=== PATIENT | female | born 1945 | race Caucasian/White ===

== ENCOUNTER 2016-09-12 19:13 | Inpatient (IN) | payer MEDICARE, OTHER ==
[~2016-09-12] VITALS: Ht 157.5 cm; Wt 49.4 kg
--- NOTE | ~2016-09-12 | PR ---
[place], [place] PROGRESS NOTE NAME: JO ANN FONG [facility] #: [id number] UNIT #: [id number] ROOM: 411 DOCTOR: JEANCARLOS LEO MD,AMISH BIRTHDATE: [birth year] DOS: 09/15/2016 SUBJECTIVE: The patient was seen and examined on 09/15/2016. She was still noted with generalized weakness and fatigue with shortness of breath. Shortness of breath has been noted somewhat decreased. Coughing has been subsiding gradually. Denies any symptoms of chest pain or any abdominal pain. She has been continued corticosteroids, bronchodilators, and the antibiotics. OBJECTIVE: VITAL SIGNS: For the patient which has been recorded showed normal temperature, respiratory rate 18, heart rate 85, blood pressure 154/76. Pulse oxygen saturation of the patient recorded on 3 liters nasal canula 92% saturation. HEENT: Examination shows no acute change. NECK: Supple. CARDIOVASCULAR: S1, S2 audible. LUNGS: The patient was noted without any wheezing or crackles at this time. Breaths are noted generalized diminished bilaterally with decreased air exchange. ABDOMEN: Soft, nontender, bowel sounds present. LABORATORY DATA: BMP this morning was noted normal BUN and creatinine, CO2 was 38. CBC this morning was essentially noted as normal. IMPRESSION: 1. The patient with gradual reduction and resolution of the acute on chronic hypercapnic hypoxic respiratory failure with acute exacerbation of chronic obstructive pulmonary disease, severe muscular deconditioning was still noted. 2. Metabolic alkalosis of the patient was also noted related to the chronic hypercarbia. PLAN OF TREATMENT: Physical therapy and occupation therapy. Reduce the Solu-Medrol of the patient to b.i.d. dosing. The patient has been presented the option of assessment for the long-term acute care facility and long-term, but the patient does not want me to accept any of the recommendation and only wanted to be discharged home with home health services. Because of severe muscular deconditioning the patient has been told she is going to take significant amount of time to have a purposefully improvement in a physical status. The patient does understand that. In the meantime, we will continue the current plan of management at this time. Usual care, other supportive therapy, plan of care and treatments. Further treatment changes will be done based on the progression of the illness. [place], [place] PROGRESS NOTE NAME: JO ANN FONG UNIT #: [id number] ROOM: 411 DOCTOR: JEANCARLOS LEO MD,AMISH BIRTHDATE: [birth year] AMISH ARSHAD MD CM:PNTRANS [id number] AMISH LEO MD 09/15/16 2326 interface
--- NOTE | ~2016-09-12 | PR ---
[place], [place] PROGRESS NOTE NAME: JO ANN FONG UNIT #: [id number] ROOM: 411 DOCTOR: AMISH ALMARAZ MD BIRTHDATE: [birth year] DOS: 09/16/2016 SUBJECTIVE: The patient has been noted comfortable. At this time, she was noted with generalized weakness and fatigue. Using oxygen supplementation and nasal canula. Coughing, shortness of breath, other symptoms was slowly resolving. OBJECTIVE: VITAL SIGNS: Shows normal temperature, respirations 18, heart rate 85, and blood pressure 154/60. Pulse oxygen saturation on 3 liters nasal cannula 94% saturation. HEENT: Shows no acute change. NECK: Supple. CARDIOVASCULAR SYSTEM: S1, S2 audible. LUNGS: The patient noted moderate reduction in the breath sounds were noted in the lungs bilaterally with a questionable wheezing. There were no crackles. ABDOMEN: Soft, nontender. LABORATORY DATA: CBC: WBC count 11.1. Remaining CBC was normal. BMP this morning noted normal BUN and creatinine. Carbon dioxide of 39. IMPRESSION: 1. Stable respiratory status was noted at the present time with resolving acute exacerbation of chronic obstructive pulmonary disease with acute tracheobronchitis. 2. Acute on chronic hypercapnia hypoxic respiratory failure also gradually resolving. 3. Muscle deconditioning and debility. PLAN OF TREATMENT: The patient could be discharged home on oral prednisone tapering dose, use of antibiotic, use of oxygen supplementation. Home health, physical therapy and occupation therapy. Outpatient assessment of the patient for the COPD and the pulmonary nodule needs to be done. She was asked to make an appointment in the office in couple of weeks post-discharge for further assessment of respiratory status. Abstinence of tobacco use was encouraged. [place], [place] PROGRESS NOTE NAME: JO ANN FONG UNIT #: [id number] ROOM: 411 DOCTOR: AMISH ALMARAZ MD BIRTHDATE: [birth year] AMISH ARSHAD MD CM:PNTRANS [id number] AMISH LEO MD 09/16/16 1409 interface
--- NOTE | ~2016-09-12 | CON ---
[place], [place] REPORT OF CON[facility]ULTATION [id number] UN[facility] #: [id number] ROOM: 411 DOCTOR: AMISH ALMARAZ MD BIRTHDATE: [birth year] DOS: 09/13/2016 CONSULTATION REQUESTED BY: Hospitalist Services. REASON FOR CONSULTATION: For assessment of acute respiratory complaints. HISTORY OF PRESENT ILLNESS: A 70-year-old white female who has been admitted to the hospital under the care of the Hospitalist Services on 09/12/2016. The patient reported symptoms of shortness of breath for the patient that have been associated with significant dizziness for the past 3 days. Shortness of breath has been noted significantly worsening. The patient denies symptoms of chest pain. The patient denies symptoms of hemoptysis. The coughing has been noted moderate to severely without any sputum expectoration. Wheezing for the patient was also noted for this patient in the last few days. REVIEW OF SYSTEMS: CONSTITUTIONAL: Fatigue and tiredness noted without any abnormal weight loss history. Denies any changes in appetite. EYES: Denies any burning, redness, tenderness, discharge, or dryness. EARS, NOSE, AND THROAT: No sore throat, hoarseness, otalgia, or epistaxis. CARDIOVASCULAR: Denies any anginal pain, edema, pain in lower extremities, or palpitations. GASTROINTESTINAL: Denies dysphagia, nausea, vomiting, diarrhea, abdominal pain, hematemesis, melena, hematochezia. GENITOURINARY: Denies dysuria, suprapubic pain, hematuria. SKIN: Denies lesions or rashes. MUSCULOSKELETAL: Denies any acute joint pain, redness, or tenderness. CENTRAL NERVOUS SYSTEM: Symptoms of dizziness without any seizures. Denies symptoms of diplopia or headaches. The patient's remaining systems were reviewed with the patient, they were noted all negative. PAST MEDICAL HISTORY: Noted with previous hospitalization in this hospital and treated in 2016 for this patient in October for the acute on chronic hypoxic respiratory failure, acute exacerbation of COPD, acute tracheobronchitis. PAST MEDICAL HISTORY: 1. Severe centrilobular emphysema with FEV1 about 23% 2. Chronic hypoxic respiratory failure, use of oxygen supplementation. 3. Generalized anxiety disorder. 4. History of major depression. 5. Chronic nicotine dependence. PAST SURGICAL HISTORY: 1. Fiberoptic bronchoscopy for the patient in the past. 2. T and A. 3. Appendectomy. 4. Tubal ligation. [place], [place] REPORT OF CONSULTATION NAME: JO ANN FONG UNIT #: [id number] ROOM: 411 DOCTOR: JEANCARLOS LEO MD,AMISH BIRTHDATE: [birth year] SOCIAL HISTORY: The patient is , lives at home. Denies history of alcohol use or illicit drug use. Tobacco use noted since teenager, 2 packs of cigarettes per day, and stated that she had been smoking 1-2 cigarettes a day for this patient. She also noted history of marijuana use, which is chronic. Denies history of alcohol use or any illicit drug use. Denies history of occupation related pulmonary exposure history. FAMILY HISTORY: For the patient was noted remarkable for colon cancer, coronary artery disease, and brain cancer. HOME MEDICATIONS: Known as use of: 1. ProAir HFA inhaler p.r.n. use. 2. Symbicort 160/4.5 two puffs b.i.d. 3. Aspirin 81 mg p.o. daily. 4. Effexor XR 150 mg daily. 5. Fish oil 2000 mg p.o. daily. 6. Tranxene for the patient 7.5 mg b.i.d. 7. Valproic acid for the patient 125 mg p.o. t.i.d. 8. ____. 9. Use of oxygen supplementation. DRUG ALLERGIES: The drug allergy history for the patient was noted as: 1. IVP DYE. 2. CODEINE PHOSPHATE. 3. KEFLEX. PHYSICAL EXAMINATION: GENERAL: This is a 70-year-old female who has been noted currently awake and alert without any distress. Height of 5 feet 2 inches, weight of 109 pounds, BMI 19.9. VITAL SIGNS: For the patient which has been recorded shows temperature was noted as normal, respiratory rate 18-20, heart rate of 91-104, blood pressure 120/50-123/59. Intake for the patient recorded as intake 2700 mL, output was documented only 200 mL in the last 12 hours of admission. Pulse oxygen saturation on 4 L nasal cannula 95% saturation. HEENT: Examination of the head was atraumatic. Eyes nonicterus. NECK: Supple. CARDIOVASCULAR: S1, S2 audible. LUNGS: General reduction in breath sounds noted in the lungs bilaterally with diffuse expiratory wheezing. There were no crackles. ABDOMEN: Soft, nontender. Bowel sounds are present. EXTREMITIES: Showed no edema, clubbing, or cyanosis. CENTRAL NERVOUS SYSTEM: There were no gross focal neurologic deficits. Cranial nerves 2-12 intact. MUSCULOSKELETAL: No acute deformities. SKIN: No lesions or rashes. LABORATORY DATA: CBC of the patient on 09/12/2016 shows normal CBC for the patient. The lactic acid 1.1 on on admission for this patient in August. CMP of the patient and hepatic panel for the patient, BMP was noted as normal on [place], [place] REPORT OF CONSULTATION NAME: JO ANN FONG UNIT #: [id number] ROOM: [facility] DOCTOR: FATOU ALMARAZ MDM BIRTHDATE: [birth year] 09/12/2016. CK-MB additionally to assess the patient was noted normal this morning. The BMP this morning, glucose 212, BUN 8, creatinine was normal. Phosphorus 1.8. Calcium was normal. CBC this morning, WBC count 4.5, hemoglobin 11.8, hematocrit 35.8, platelet count of 161,000. Chest x-ray of the patient that was done for this patient, 1 view, on 09/12/2016 shows severe emphysematous changes for the patient were noted in the lungs. Possible pulmonary nodule was suspected in the right middle lobe. CT scan of the chest that was done on 09/13/2016 for the patient compared to the previous CT scan of 10/2015 shows marked improvement and resolution of the bilateral patchy infiltration tree-in-bud appearance and infiltration in the lungs. Nodule for this patient and/or scarring for the patient, which is present in the right middle lobe minor fissure for the patient appeared to be about the same for this patient, may be a little bit prominence cannot be completely excluded. Other nodular density for this patient, which has been noted previously appears the same or resolved. There was a left lingula for the patient noted with patchy infiltration for this patient and in the left upper lobe for the patient as well. A large bullous lesion for this patient was noted in the right lower lobe. There was no lymphadenopathy with the patient was noted. IMPRESSION: 1. The patient who has been currently admitted to the hospital and being treated for this patient with acute recurrent exacerbation of chronic obstructive pulmonary disease, acute tracheobronchitis, history of chronic hypoxic respiratory failure. 2. Rule out hypercarbia for this patient with arterial blood gases as the patient stated that she has been noted some confusional status as well in the last few days. 3. The patient with steroid-induced hyperglycemia was noted, which will be managed for the patient with the sliding scale insulin coverage for this patient as well. PLAN: Other supportive therapy, plan of management at this time to be continued. The abnormality to the right middle lobe for the patient will be assessed with a PET scan as an outpatient. Sputum for Gram stain and culture for the patient will be done as well. Use of the Mucinex for the patient to help clear out the secretions. Supportive therapy plan of management. Other care. Further treatment changes will be done based on the progression of the illness. The patient's continued low grade tobacco use for the patient was encouraged about complete tobacco cessation in the future. Oxygen supplementation to be continued, maintaining saturation 92% or greater. If the hypercarbia observed significant for the patient, the patient will benefit from use of the trial with the BiPAP at that time. Otherwise, no changes in the antibiotics for the patient will be necessary. She has been also getting Solu-Medrol which will be continued same dose, 40 mg every 8 hours and current use of the antibiotic as Levaquin. Thanks for allowing me to participate in the care of this patient. [place], [place] REPORT OF CONSULTATION NAME: JO ANN FONG UNIT #: [id number] ROOM: 411 DOCTOR: AMISH ALMARAZ MD BIRTHDATE: [birth year] AMISH ARSHAD MD CM:CONSTR:REPORT OF CONSULTATION 1129 09/13/16 1212 interface
--- NOTE | ~2016-09-12 | PR ---
[place], [place] PROGRESS NOTE NAME: JO ANN FONG UNIT #: [id number] ROOM: 411 DOCTOR: AMISH ALMARAZ MD BIRTHDATE: [birth year] DOS: 09/14/2016 PULMONARY FOLLOWUP SUBJECTIVE: She has still been noted with symptoms of coughing with chest congestion and shortness of breath. Also, complaining of generalized weakness and fatigue. Dizziness was described. Shortness of breath occurred with mild exertion. OBJECTIVE: VITAL SIGNS: Shows a normal temperature, respiratory rate 18, heart rate of 91, blood pressure 171/69. Pulse oxygen saturation of the patient recorded on 3 liters nasal cannula 96% saturation. HEENT: Showed no new change. NECK: Supple. CARDIOVASCULAR SYSTEM: S1, S2 audible. LUNGS: Without any crackles. Expiratory wheezing noted. ABDOMEN: Soft, nontender. LABORATORY DATA: Carbon dioxide level was noted at 35. The BUN and creatinine was normal. CBC of this morning, WBC count 12.5, hemoglobin 11.6, hematocrit 35.2. Arterial blood gas, pH 7.36, pCO2 51, pO2 83 that was done yesterday. IMPRESSION: 1. The patient with acute exacerbation of chronic obstructive pulmonary disease with acute tracheobronchitis of the patient was noted. 2. Possibility of pulmonary nodule, scarring in the lung. 3. Metabolic alkalosis. 4. Dizziness. PLAN OF TREATMENT: The BiPAP was ordered for this patient yesterday that is used by the patient intermittently. Continue current dose of steroids, bronchodilators, antibiotics, other treatment, plan of management. Usual care, other supportive plan of therapies. All other previous treatment, plan and management and usual care. [place], [place] PROGRESS NOTE NAME: JO ANN FONG UNIT #: [id number] ROOM: 411 DOCTOR: AMISH ALMARAZ MD BIRTHDATE: [birth year] AMISH ARSHAD MD CM:PNTRANS [id number] AMISH LEO MD 09/15/16 8691 interface
[~2016-09-12 19:13] MED LIST: ALBUTEROL SULF0.5 M1 NEB; ALBUTEROL0.09 MG/A2 INH; ALPH-E400 IU PO; ASPIRIN325 M2 PO; BACTRIM DS 8001 TA1 PO; CLORAZEPATE7.5 MG PO; D-31000 IU PO; DOXYCYCLINE100 M3 PO; Depakote250 MG PO; ECHINACEA PO; EFFEXOR XR150 M1 PO; FISH OIL PO; HEPARIN LOCK FLU IV; HYDROCODONE BIT1 T11 PO; LEVAQUIN LEVA-750 MG PO; LEVAQUIN250 MG PO; METAMUCIL1.7 GM PO; MIRALAX POWDER17 G1 PO; NIACIN FLUSH-F400 MG PO; OXYGEN NAS; PREDNICOT10 MG PO; PREDNISONE10 MG PO; PROAIR HFA8.5 GM INH; PROTONIX TR40 MG PO; SENOKOT1 TAB PO; SOLU-MEDROL IV; SPIRIVA 5 CAPS18 MCG INH; SYMBICORT1 AE1 INH; TOBREX OPHTH S2.5 ML OPH; TRANXENE PO; Tranxene7.5 MG PO; VENLAFAXINE150 MG PO; VITAMIN D31000 IU PO; VITAMIN D32000 I1 PO; VITAMIN D32000 IU PO; VITAMIN E NATU PO; ZITHROMAX Z PA250 MG PO; [UNRECOGNIZED DRUG - REMARK]; [UNRECOGNIZED DRUG - REMARK] IV
[2016-09-12 19:15] VITALS: BP 150/98
[2016-09-12 20:07] LABS: HEMATOCRIT 40.7 % (37.0-47.0); HEMOGLOBIN 13.7 g/dl (12.0-16.0); LYMPH # 0.7 10*3/uL (1.3-4.4); LYMPH % 15.2 % (27.0-41.0); MEAN CELL VOLUME 89.6 fl (81.0-99.0); MEAN CORPUSCULAR HGB 30.2 pg (27.0-31.0); MEAN CORPUSCULAR HGB CONC 33.7 g/dl (33.0-37.0); MEAN PLATELET VOLUME 10.1 fl (9.6-12.3); MONO # 0.6 10*3/uL (0.1-1.0); MONO % 12.9 % (3.0-9.0); NEUT # 3.5 10*3/uL (2.3-7.9); NEUT % 71.5 % (47.0-73.0); PLATELET COUNT AUTOMATED 193 10*3/uL (130-400); RED BLOOD COUNT 4.54 10*6/uL (4.10-5.10); WHITE BLOOD COUNT 4.9 10*3/uL (4.8-10.8)
[2016-09-12 20:25] LABS: ALBUMIN 4.1 gm/dl (3.1-4.5); ALKALINE PHOSPHATASE 69 U/L (45-117); BILIRUBIN, DIRECT < 0.1 mg/dL (0.0-0.2); BILIRUBIN, TOTAL 0.2 mg/dl (0.2-1.0); SGOT/AST 23 IU/L (3-35); SGPT/ALT 28 U/L (12-78); TOTAL PROTEIN 7.3 gm/dL (6.4-8.2)
[2016-09-12 20:26] LABS: TROPONIN I < 0.015 ng/ml (<0.045)
[2016-09-12 22:23] VITALS: BP 122/64
[2016-09-12 22:50] VITALS: BP 168/73
[2016-09-13] VITALS: BP 123/59
[2016-09-13 00:39] LABS: CKMB 1.5 ng/ml (0.5-3.6); CPK 36 U/L (26-192)
[2016-09-13 00:41] LABS: TROPONIN I < 0.015 ng/ml (<0.045)
[2016-09-13 06:10] LABS: HEMATOCRIT 35.8 % (37.0-47.0); HEMOGLOBIN 11.8 g/dl (12.0-16.0); MEAN CELL VOLUME 91.6 fl (81.0-99.0); MEAN CORPUSCULAR HGB 30.2 pg (27.0-31.0); MEAN PLATELET VOLUME 10.5 fl (9.6-12.3); PLATELET COUNT AUTOMATED 161 10*3/uL (130-400); RED BLOOD COUNT 3.91 10*6/uL (4.10-5.10); RED CELL DISTRI WIDTH 13.1 % (0-14.5); WHITE BLOOD COUNT 4.5 10*3/uL (4.8-10.8)
[2016-09-13 06:25] LABS: HEMOGLOBIN A1c 5.1 % (4.8-5.6)
[2016-09-13 06:25] LABS: CPK 42 U/L (26-192)
[2016-09-13 06:32] LABS: TROPONIN I < 0.015 ng/ml (<0.045)
[2016-09-13 06:38] LABS: BUN 8 mg/dl (7-24); CARBON DIOXIDE 31 mmol/L (21-32); CHLORIDE 100 mmol/L (98-107); CHOLESTEROL 147 mg/dL (<200); EST GLOM FILT AFRICAN AMERICAN > 60 ml/min; FREE T4 0.78 ng/dl (0.76-1.46); GLUCOSE 212 mg/dL (65-99); HDL CHOLESTEROL 79 mg/dl (40-60); LDL CHOLESTEROL 56 mg/dL (9-159); MAGNESIUM 1.7 mg/dL (1.5-2.1); PHOSPHOROUS 1.8 mg/dL (2.5-4.9); POTASSIUM 3.8 mmol/L (3.5-5.1); SODIUM 141 mmol/L (136-145); TRIGLYCERIDES 60 mg/dl (<150); VLDL CHOLESTEROL 12 mg/dL (6-40)
[2016-09-13 06:46] LABS: THYROID STIM HORMONE (HS) 0.269 uIU/ml (0.358-4.75)
[2016-09-13 06:57] LABS: LYMPHOCYTE # 0.3 10*3/uL (1.3-4.4); NEUTROPHIL # 4.2 10*3/uL (2.3-7.9); NEUTROPHILS 93 % (47-73); PLATELET SUFFICIENCY NORMAL (NORMAL); TOTAL CELLS COUNTED 100 #CELLS
[2016-09-13 07:43] LABS: FOLIC ACID 20.13 ng/mL (>5.38)
[2016-09-13 08:00] VITALS: BP 128/50
[2016-09-13] MEDS ORDERED: DIVALPROEX SOD125 MG PO (09:24)
[2016-09-13 11:29] LABS: ABG CO2 CONTENT 30.6 mmol/L (23-27); ABG TEMPERATURE 97.3 F (98.0-99.0); ARTERIAL BLOOD GAS PH 7.363 (7.35-7.45); ARTERIAL BLOOD GAS PO2 83.8 mmHg (80-90)
[2016-09-13 11:49] LABS: BILIRUBIN NEGATIVE (NEGATIVE); BLOOD TRACE-LYSED (NEGATIVE); CLARITY CLEAR (CLEAR); COLOR YELLOW (YELLOW); GLUCOSE 3+ (NEGATIVE); KETONE NEGATIVE (NEGATIVE); LEUKO ESTERASE NEGATIVE (NEGATIVE); NITRITE NEGATIVE (NEGATIVE); PH 5.5 (5.0-9.0); PROTEIN NEGATIVE (NEGATIVE); SPECIFIC GRAVITY 1.015 (1.005-1.030); UROBILINOGEN 0.2 E.U./dl (0.2-1.0)
[2016-09-13 11:59] LABS: URINE REFLEX COMMENT NO (NO)
[2016-09-13 12:00] VITALS: BP 128/61
[2016-09-13 12:14] LABS: CKMB 2.8 ng/ml (0.5-3.6)
[2016-09-13 12:15] LABS: CPK 56 U/L (26-192); TROPONIN I < 0.015 ng/ml (<0.045)
[2016-09-13 16:00] VITALS: BP 130/51
[2016-09-13 20:00] VITALS: BP 128/43
[2016-09-14] VITALS: BP 119/55
[2016-09-14 06:26] LABS: BASO % 0.1 % (0.0-1.0); HEMATOCRIT 35.2 % (37.0-47.0); HEMOGLOBIN 11.6 g/dl (12.0-16.0); IG # 0.1 10*3/uL (0.0-0.1); LYMPH % 7.6 % (27.0-41.0); MEAN CELL VOLUME 91.2 fl (81.0-99.0); MEAN CORPUSCULAR HGB 30.1 pg (27.0-31.0); MEAN PLATELET VOLUME 10.5 fl (9.6-12.3); MONO # 0.9 10*3/uL (0.1-1.0); MONO % 7.4 % (3.0-9.0); NEUT # 10.6 10*3/uL (2.3-7.9); NEUT % 84.5 % (47.0-73.0); PLATELET COUNT AUTOMATED 185 10*3/uL (130-400); RED BLOOD COUNT 3.86 10*6/uL (4.10-5.10); RED CELL DISTRI WIDTH 13.2 % (0-14.5); WHITE BLOOD COUNT 12.5 10*3/uL (4.8-10.8)
[2016-09-14 06:39] LABS: ALBUMIN 3.4 gm/dl (3.1-4.5); ALKALINE PHOSPHATASE 52 U/L (45-117); BILIRUBIN, TOTAL 0.2 mg/dl (0.2-1.0); BUN 8 mg/dl (7-24); CARBON DIOXIDE 35 mmol/L (21-32); CHLORIDE 99 mmol/L (98-107); EST GLOM FILT AFRICAN AMERICAN > 60 ml/min; GLUCOSE 87 mg/dL (65-99); SGOT/AST 16 IU/L (3-35); SGPT/ALT 23 U/L (12-78); SODIUM 142 mmol/L (136-145); TOTAL PROTEIN 6.3 gm/dL (6.4-8.2)
[2016-09-14 08:00] VITALS: BP 171/69
[2016-09-14 12:00] VITALS: BP 145/58
[2016-09-14 16:00] VITALS: BP 105/70
[2016-09-14 20:00] VITALS: BP 143/58
[2016-09-15] VITALS: BP 132/66
[2016-09-15 06:30] LABS: LYMPH # 0.6 10*3/uL (1.3-4.4); LYMPH % 6.1 % (27.0-41.0); MEAN CELL VOLUME 91.8 fl (81.0-99.0); MEAN CORPUSCULAR HGB 29.4 pg (27.0-31.0); MEAN CORPUSCULAR HGB CONC 32.1 g/dl (33.0-37.0); MEAN PLATELET VOLUME 9.8 fl (9.6-12.3); MONO # 0.4 10*3/uL (0.1-1.0); MONO % 3.6 % (3.0-9.0); NEUT % 89.9 % (47.0-73.0); PLATELET COUNT AUTOMATED 206 10*3/uL (130-400); RED BLOOD COUNT 4.62 10*6/uL (4.10-5.10); RED CELL DISTRI WIDTH 13.2 % (0-14.5)
[2016-09-15 06:38] LABS: HEMATOCRIT 42.4 % (37.0-47.0); HEMOGLOBIN 13.6 g/dl (12.0-16.0)
[2016-09-15 07:09] LABS: BUN 11 mg/dl (7-24); CARBON DIOXIDE 38 mmol/L (21-32); CHLORIDE 94 mmol/L (98-107); EST GLOM FILT AFRICAN AMERICAN > 60 ml/min; GLUCOSE 122 mg/dL (65-99); POTASSIUM 4.6 mmol/L (3.5-5.1); SODIUM 141 mmol/L (136-145)
[2016-09-15 08:00] VITALS: BP 154/76
[2016-09-15 16:00] VITALS: BP 128/78; BP 147/78
[2016-09-15 20:00] VITALS: BP 130/63
[2016-09-15] MEDS ORDERED: SPIRIVA -- 3018 MCG INH (21:56)
[2016-09-16] VITALS: BP 138/71
[2016-09-16 07:51] LABS: BASO % 0.1 % (0.0-1.0); HEMATOCRIT 40.1 % (37.0-47.0); HEMOGLOBIN 13.1 g/dl (12.0-16.0); LYMPH # 1.8 10*3/uL (1.3-4.4); LYMPH % 16.6 % (27.0-41.0); MEAN CELL VOLUME 89.1 fl (81.0-99.0); MEAN CORPUSCULAR HGB 29.1 pg (27.0-31.0); MEAN CORPUSCULAR HGB CONC 32.7 g/dl (33.0-37.0); MEAN PLATELET VOLUME 9.7 fl (9.6-12.3); MONO # 1.3 10*3/uL (0.1-1.0); MONO % 11.8 % (3.0-9.0); NEUT # 7.9 10*3/uL (2.3-7.9); NEUT % 71.1 % (47.0-73.0); PLATELET COUNT AUTOMATED 231 10*3/uL (130-400); RED CELL DISTRI WIDTH 13.1 % (0-14.5); WHITE BLOOD COUNT 11.1 10*3/uL (4.8-10.8)
[2016-09-16 08:00] VITALS: BP 154/60
[2016-09-16 08:23] LABS: BUN 12 mg/dl (7-24); CARBON DIOXIDE 39 mmol/L (21-32); CHLORIDE 92 mmol/L (98-107); EST GLOM FILT AFRICAN AMERICAN > 60 ml/min; GLUCOSE 90 mg/dL (65-99); POTASSIUM 4.2 mmol/L (3.5-5.1); SODIUM 139 mmol/L (136-145)
[2016-09-16] MEDS ORDERED: PREDNISONE10 MG PO (09:48)
[2016-09-16] MEDS ORDERED: SPIRIVA -- 3018 MCG INH (09:48)
[2016-09-16] MEDS ORDERED: AVPAK AZITHROM250 MG PO (09:49)
== END 2016-09-16 12:12 | disposition home health service (06) | DRG 871 ==
LOC: ED 19:13 → 4E 21:39 → EDHOLD 21:39 → 4E 22:09
PROVIDERS: Emergency Medicine; Hospitalist; Internal Medicine; Internal Medicine Critical Care Medicine
PROC: 5A09357 Assistance with Respiratory Ventilation, Less than 24 Consecutive Hours, Continuous Positive Airway Pressure (ICD-10-PCS; principal; 2016-09-13)
DX: A41.9 Sepsis, unspecified organism (principal); G93.41 Metabolic encephalopathy; J96.21 Acute and chronic respiratory failure with hypoxia; J96.22 Acute and chronic respiratory failure with hypercapnia; J44.1 Chronic obstructive pulmonary disease with (acute) exacerbation; J44.0 Chronic obstructive pulmonary disease with (acute) lower respiratory infection; F32.9 Major depressive disorder, single episode, unspecified; F41.1 Generalized anxiety disorder; D72.810 Lymphocytopenia; E83.39 Other disorders of phosphorus metabolism; J20.9 Acute bronchitis, unspecified; F17.210 Nicotine dependence, cigarettes, uncomplicated; T38.0X5A Adverse effect of glucocorticoids and synthetic analogues, initial encounter; R73.9 Hyperglycemia, unspecified; D64.9 Anemia, unspecified; Z79.899 Other long term (current) drug therapy; Z79.82 Long term (current) use of aspirin; Z88.1 Allergy status to other antibiotic agents; Z88.5 Allergy status to narcotic agent; Z99.81 Dependence on supplemental oxygen; Z91.030 Bee allergy status; Z91.041 Radiographic dye allergy status; Z98.51 Tubal ligation status; Z82.49 Family history of ischemic heart disease and other diseases of the circulatory system; Z80.1 Family history of malignant neoplasm of trachea, bronchus and lung; Z79.4 Long term (current) use of insulin; Z79.84 Long term (current) use of oral hypoglycemic drugs

== ENCOUNTER 2016-12-24 23:18 | Inpatient (IN) | payer MEDICARE, OTHER ==
[~2016-12-24] VITALS: Ht 160 cm; Wt 44.1 kg
[~2016-12-24 23:18] MED LIST changes: +AVPAK AZITHROM250 MG PO; +DIVALPROEX SOD125 MG PO; +SPIRIVA -- 3018 MCG INH
[2016-12-24 23:19] VITALS: BP 120/77
[2016-12-24 23:49] LABS: BASO % 0.1 % (0.0-1.0); EOS % 0.1 % (1.0-4.0); HEMATOCRIT 49.7 % (37.0-47.0); HEMOGLOBIN 16.2 g/dl (12.0-16.0); LYMPH % 23.9 % (27.0-41.0); MEAN CELL VOLUME 92.4 fl (81.0-99.0); MEAN CORPUSCULAR HGB 30.1 pg (27.0-31.0); MEAN CORPUSCULAR HGB CONC 32.6 g/dl (33.0-37.0); MONO # 0.6 10*3/uL (0.1-1.0); MONO % 6.9 % (3.0-9.0); NEUT # 5.9 10*3/uL (2.3-7.9); NEUT % 68.8 % (47.0-73.0); PLATELET COUNT AUTOMATED 223 10*3/uL (130-400); RED BLOOD COUNT 5.38 10*6/uL (4.10-5.10); RED CELL DISTRI WIDTH 13.8 % (0-14.5); WHITE BLOOD COUNT 8.6 10*3/uL (4.8-10.8)
[2016-12-25] VITALS (7 sets, daily range): BP systolic 112–141; BP diastolic 54–77
[2016-12-25 00:03] LABS: ALBUMIN 3.9 gm/dl (3.1-4.5); ALKALINE PHOSPHATASE 67 U/L (45-117); BILIRUBIN, TOTAL 0.3 mg/dl (0.2-1.0); BUN 8 mg/dl (7-24); CARBON DIOXIDE 38 mmol/L (21-32); CHLORIDE 97 mmol/L (98-107); EST GLOM FILT AFRICAN AMERICAN > 60 ml/min; GLUCOSE 126 mg/dL (65-99); POTASSIUM 5.4 mmol/L (3.5-5.1); SGOT/AST 18 IU/L (3-35); SGPT/ALT 25 U/L (12-78); SODIUM 140 mmol/L (136-145); TOTAL PROTEIN 7.3 gm/dL (6.4-8.2)
[2016-12-25] MEDS ORDERED: VENLAFAXINE75 M1 PO (02:51)
[2016-12-25 06:10] LABS: HEMATOCRIT 46.1 % (37.0-47.0); HEMOGLOBIN 15.1 g/dl (12.0-16.0); MEAN CORPUSCULAR HGB 30.1 pg (27.0-31.0); MEAN CORPUSCULAR HGB CONC 32.8 g/dl (33.0-37.0); PLATELET COUNT AUTOMATED 209 10*3/uL (130-400); RED BLOOD COUNT 5.01 10*6/uL (4.10-5.10); RED CELL DISTRI WIDTH 13.8 % (0-14.5); WHITE BLOOD COUNT 7.1 10*3/uL (4.8-10.8)
[2016-12-25 06:26] LABS: ALBUMIN 3.5 gm/dl (3.1-4.5); BUN 7 mg/dl (7-24); CARBON DIOXIDE 32 mmol/L (21-32); CHLORIDE 100 mmol/L (98-107); GLUCOSE 170 mg/dL (65-99); MAGNESIUM 1.9 mg/dL (1.5-2.1); SODIUM 140 mmol/L (136-145)
[2016-12-25 06:32] LABS: ALKALINE PHOSPHATASE 63 U/L (45-117); BILIRUBIN, TOTAL 0.3 mg/dl (0.2-1.0); EST GLOM FILT AFRICAN AMERICAN > 60 ml/min; SGOT/AST 17 IU/L (3-35); SGPT/ALT 21 U/L (12-78); TOTAL PROTEIN 6.4 gm/dL (6.4-8.2)
[2016-12-25 06:33] LABS: POTASSIUM 4.1 mmol/L (3.5-5.1)
[2016-12-25 06:44] LABS: LYMPHOCYTE # 0.3 10*3/uL (1.3-4.4); MONOCYTE # 0.1 10*3/uL (0.1-1.0); NEUTROPHIL # 6.7 10*3/uL (2.3-7.9); NEUTROPHILS 95 % (47-73); TOTAL CELLS COUNTED 100 #CELLS
[2016-12-25 06:45] LABS: PLATELET SUFFICIENCY NORMAL (NORMAL)
[2016-12-25 07:20] LABS: PROTHROMBIN TIME 10.2 SECONDS (9.0-12.4)
[2016-12-25] MEDS ORDERED: ALBUTEROL2.5 MG/0.5 INH (10:55)
[2016-12-25] MEDS ORDERED: REMERON15 M2 PO (10:56)
[2016-12-25] MEDS ORDERED: BREO ELLIPTA 11 EACH INH (10:56)
[2016-12-26] VITALS: BP 128/62
[2016-12-26 06:44] LABS: BASO % 0.1 % (0.0-1.0); HEMATOCRIT 41.5 % (37.0-47.0); HEMOGLOBIN 13.7 g/dl (12.0-16.0); IG # 0.2 10*3/uL (0.0-0.1); LYMPH # 0.8 10*3/uL (1.3-4.4); LYMPH % 5.2 % (27.0-41.0); MEAN CELL VOLUME 90.2 fl (81.0-99.0); MEAN CORPUSCULAR HGB 29.8 pg (27.0-31.0); MEAN PLATELET VOLUME 10.4 fl (9.6-12.3); MONO # 0.6 10*3/uL (0.1-1.0); MONO % 3.7 % (3.0-9.0); NEUT # 14.3 10*3/uL (2.3-7.9); NEUT % 89.9 % (47.0-73.0); PLATELET COUNT AUTOMATED 188 10*3/uL (130-400); RED CELL DISTRI WIDTH 13.7 % (0-14.5); WHITE BLOOD COUNT 15.9 10*3/uL (4.8-10.8)
[2016-12-26 07:14] LABS: ALBUMIN 3.3 gm/dl (3.1-4.5); ALKALINE PHOSPHATASE 56 U/L (45-117); BUN 6 mg/dl (7-24); CARBON DIOXIDE 35 mmol/L (21-32); CHLORIDE 98 mmol/L (98-107); GLUCOSE 130 mg/dL (65-99); POTASSIUM 4.7 mmol/L (3.5-5.1); SODIUM 140 mmol/L (136-145)
[2016-12-26 07:17] LABS: BILIRUBIN, TOTAL 0.4 mg/dl (0.2-1.0); EST GLOM FILT AFRICAN AMERICAN > 60 ml/min; SGOT/AST 27 IU/L (3-35); SGPT/ALT 38 U/L (12-78); TOTAL PROTEIN 6.1 gm/dL (6.4-8.2)
[2016-12-26 08:00] VITALS: BP 134/84
[2016-12-26] MEDS ORDERED: PREDNISONE10 MG PO (10:10)
[2016-12-26] MEDS ORDERED: FUTURO RESTORI1 EACH MC (10:10)
== END 2016-12-26 11:26 | disposition home or self-care (01) | DRG 191 ==
LOC: ED 23:18 → EDHOLD 12-25 01:03 → 5E 12-25 01:03
PROVIDERS: Family Medicine; Internal Medicine Nephrology; Student in an Organized Health Care Education/Training Program
DX: J44.1 Chronic obstructive pulmonary disease with (acute) exacerbation (principal); E44.1 Mild protein-calorie malnutrition; E87.5 Hyperkalemia; Z99.81 Dependence on supplemental oxygen; D75.1 Secondary polycythemia; Z68.1 Body mass index [BMI] 19.9 or less, adult; R73.9 Hyperglycemia, unspecified; F32.9 Major depressive disorder, single episode, unspecified; F41.1 Generalized anxiety disorder; I95.1 Orthostatic hypotension; F12.90 Cannabis use, unspecified, uncomplicated; Z87.891 Personal history of nicotine dependence; Z82.49 Family history of ischemic heart disease and other diseases of the circulatory system; Z80.1 Family history of malignant neoplasm of trachea, bronchus and lung; Z88.1 Allergy status to other antibiotic agents; Z88.5 Allergy status to narcotic agent; Z91.041 Radiographic dye allergy status

== ENCOUNTER 2017-07-03 14:11 | Inpatient (IN) | payer MEDICARE, OTHER ==
[2017-07-03] VITALS (7 sets, daily range): BP systolic 100–138; BP diastolic 44–76
[~2017-07-03] VITALS: Ht 157.5 cm; Wt 36.5 kg
--- NOTE | ~2017-07-03 | PR ---
[place], [place] PROGRESS NOTE NAME: [id number] UNIT #: [id number] ROOM: 422 DOCTOR: JENELLE OHARAAMBERLY BIRTHDATE: [birth year] DOS: 07/10/2017 SUBJECTIVE: The patient is seen and examined at bedside. The patient is sitting upright at 30 degree inclined, in no acute distress. The patient and her son were present at the time of the interview. The patient reports that her symptoms have dramatically improved; however, she continues to have cough, shortness of breath and a little bit of difficulty breathing; however, again, the patient reports dramatic improvement following the bronchoscopy yesterday. Son and the patient discussed further care pertaining to workup for the cancer and all questions and concerns regarding prognosis and the steps for workup were discussed and all their questions were answered to their satisfaction. We discussed with the patient and family about going to [facility] for continued care and continue workup for the pulmonary nodule along with her acute respiratory failure. The patient and son agree with the plan to have continued care at a long-term acute care hospital. No new complaints at this time. OBJECTIVE: VITAL SIGNS: Temperature 98.0, pulse is 101, respiration is 18, blood pressure 134/64, pulse ox is 100% on 3 liters nasal cannula. LABS: Bronchial washings remains negative. Blood cultures remain negative. PHYSICAL EXAMINATION: GENERAL APPEARANCE: The patient is emaciated, cachectic, in no acute distress, alert and oriented x 3. HEENT: Eyes are clear. No injection. Nares are patent. Mucous membranes are moist. NECK: Supple, nontender. CARDIOVASCULAR: Regular rate and rhythm. S1, S2 appreciated. PULMONARY: Positive for wheezing and mild rales, no rhonchi. ABDOMEN: Soft, nontender. Positive bowel sounds. EXTREMITIES: No edema, erythema, clubbing or cyanosis. NEUROLOGIC: Negative for focal deficits. ASSESSMENT: 1. Acute on chronic obstructive pulmonary disease with hypercapnia and hypoxia. 2. Metabolic alkalosis. 3. Severe cough. 4. Right middle lobe pulmonary nodule suspected, highly suspicious for lung malignancy. 5. Severe protein calorie malnutrition and failure to thrive. PLAN OF CARE: The patient will be transferred to [facility] today for ongoing care in a long-term acute care hospital. Continue all current therapies at that hospital including Diamox, Levaquin, Solu-Medrol, breathing treatments. Physical therapy and occupational therapy recommended to work with the patient to improve and rehabilitated the patient and prepare her for discharge when she is medically stable. No other changes to current plan. [place], [place] PROGRESS NOTE NAME: JO ANN FONG UNIT #: [id number] ROOM: [facility] DOCTOR: AMBERLY ALMANZAR DO BIRTHDATE: [birth year] AMBERLY ALMANZAR DO AMISH ARSHAD MD CM:PNARUNA [id number] 19 AMBERLY ALMANZAR DO 07/10/17 2219 interface
--- NOTE | ~2017-07-03 | PR ---
[place], [place] PROGRESS NOTE NAME: JO ANN FONG [facility] #: [id number] UNIT #: [id number] ROOM: 422 DOCTOR: JEANCARLOS LEO MD,AMISH BIRTHDATE: [birth year] DOS: 07/09/2017 PULMONARY PROGRESS NOTE The patient was independently seen today with [id number] encounter, history was confirmed. Physical examination was performed. All the labs were reviewed. Assessment for the patient today's visit personally completed, any management changes for the patient personally made as well as needed. Note done by the expert medical writer was approved. SUBJECTIVE: The patient was still noted to have cough and excessive chest congestion, inability to expectorate sputum. Using oxygen supplementation. Denies symptoms of chest pain or hemoptysis. Denies symptoms of nausea, vomiting, diarrhea, any skin itching or rashes. OBJECTIVE: VITAL SIGNS: For the patient shows a normal temperature, respiratory rate 18, heart rate of 102, and blood pressure 122/58 to 143/68. HEENT: Examination shows no new change. NECK: Supple. CARDIOVASCULAR: S1, S2 audible. LUNGS: Diffuse wheezing noted in the lungs without any crackles. ABDOMEN: Soft and nontender. EXTREMITIES: No edema. MUSCULOSKELETAL: No deformities. SKIN: No lesions or rashes. CENTRAL NERVOUS SYSTEM: Intact. The pulse oxygen saturation of the patient was noted at 95% on 3 liters. Blood culture for patient on 11 of this month showed no bacterial growth. The BMP of this morning, BUN and creatinine were normal. The CO2 was noted at 42. CBC today was noted essentially normal. IMPRESSION: 1. The patient with acute on chronic hypercapnia hypoxic respiratory failure. 2. Metabolic alkalosis. The patient remains with persistent tachycardia and chronic hypercarbia. 3. Severe cough for the patient. Inability to expectorate sputum. 4. Right middle lobe pulmonary nodule, suspected lung malignancy. 5. Severe protein calorie malnutrition for the patient was also noted with cachexia. PLAN OF TREATMENT: Proceed with therapeutic bronchoscopy as planned. If there would be any endobronchial lesion visible, which I doubt, it will be biopsied. Continue improve the nutritional status. The patient, Diamox 250 mg p.o. daily will be started. Other supportive plan of management care at this time as well as ongoing. Additional treatment changes may be done for the patient based on progression of the illness and after therapeutic bronchoscopy as needed. [place], [place] PROGRESS NOTE NAME: JO ANN FONG UNIT #: [id number] ROOM: 422 DOCTOR: AMISH ALMARAZ MD BIRTHDATE: [birth year] AMISH ARSHAD MD CM:PNTRANS 1627 8 AMISH LEO MD 07/10/17138 interface
--- NOTE | ~2017-07-03 | CON ---
[place], [place] REPORT OF CONSULTATION [id number] UNIT #: [id number] ROOM: 422 DOCTOR: JEANCARLOS LEO MDAMISH BIRTHDATE: [birth year] DOS: 07/08/2017 PULMONARY CONSULTATION EVALUATION AND MANAGEMENT REASON FOR CONSULTATION: Abnormal finding CT scan of chest and ongoing abnormal respiratory symptom for exacerbation of COPD, coughing, wheezing. HISTORY OF PRESENT ILLNESS: This is a 71-year-old white female who has been hospitalized since 07/03/2017 under care of the hospitalist services. The patient was admitted to the hospital. She has been noted progressive increased respiratory symptoms with severe chest congestion and cough. The patient's symptoms have been noted gradually worsening. Denies symptoms of hemoptysis. The coughing has been noted persistent, inability to expectorate sputum in significant time, the cough has been noted. She was also noted shortness breath, which occurred with mild exertion, remains unchanged. Wheezing was also described continues since hospitalization, she has been treated for acute exacerbation of COPD. The patient underwent CT scan of the chest on this admission, which has reported a pulmonary nodule known previously with increase in the size of the right middle lobe. Denies symptoms of hemoptysis. REVIEW OF SYSTEMS: CONSTITUTIONAL: Fatigue and tiredness noted without any symptoms of fever or chills. EYES: Denies any burning, redness, or tenderness. EARS, NOSE, THROAT SYMPTOMS: No sore throat, hoarseness, otalgia, postnasal drainage or epistaxis. CARDIOVASCULAR SYSTEM: Denies anginal pain, edema or pain of the lower extremity. GASTROINTESTINAL SYMPTOM: No dysphagia, nausea, vomiting, diarrhea, abdominal pain, hematemesis, melena or hematochezia. Denies any recent abnormal weight loss, but noted with chronic low BMI. GENITOURINARY SYMPTOMS: No dysuria, suprapubic pain, hematuria. MUSCULOSKELETAL SYMPTOM. The patient denies any acute joint pain or deformities. SKIN: Denies any rashes, lesions or ulcers. CENTRAL NERVOUS SYSTEM: Denies dizziness, headache, diplopia, syncopal episode, seizures or tingling sensation of the extremities. Remaining systems were reviewed. They were noted all negative. PAST MEDICAL HISTORY: 1. Noted with advanced severe centrilobular emphysema of the patient at 23% with panlobular emphysema and paraseptal emphysema combination noted from the CT scan of the chest previously. 2. History of chronic nicotine dependence. 3. History of marijuana use. 4. Pulmonary nodule, which has been noted in the previous CT scan of the patient during her hospitalization in 2016, the patient has a right middle lobe nodule, refuses to do workup for that. [place], [place] REPORT OF CONSULTATION NAME: JO ANN FONG UNIT #: [id number] ROOM: 422 DOCTOR: FATOU ALMARAZ MDM BIRTHDATE: [birth year] PAST SURGICAL HISTORY: 1. Therapeutic bronchoscopy. 2. T and A. 3. Appendectomy. 4. Tubal ligation. SOCIAL HISTORY: The patient is and lives at home. Denies history of alcohol use. Noted with history of marijuana use for the patient for recreational use. Smoking started at teenager, 2 packs of cigarettes per day and then later on, tobacco use has been reduced, but increased again to 1 pack of cigarettes per day. History of chronic marijuana use. Denies history of alcohol use. There was no history of occupation related pulmonary exposure. FAMILY HISTORY: The patient was noted remarkable for colon cancer, coronary artery disease and brain cancer. CURRENT MEDICATIONS: Administered for this patient were noted as use of Mucinex, nicotine replacement patches, Effexor, Lovenox for DVT prophylaxis, on Solu-Medrol 40 mg b.i.d., clorazepate 7.5 mg b.i.d., DuoNeb every 4 hours, Dulcolax p.r.n. use, Levaquin IV daily. DRUG ALLERGIES: Noted as: 1. IVP DYE. 2. CODEINE. 3. KEFLEX. PHYSICAL EXAMINATION: GENERAL: A 71-year-old female who has been noted chronically ill with malnourishment and frail status, cachexia. Height of 5 feet 2 inches, weight of 80 pounds. The BMI of 14.7. VITAL SIGNS: For the patient which has been recorded showed the temperature noted as normal, respiratory rate 18-20, heart rate of 110-93, blood pressure of 90/50-113/70. Pulse oxygen saturation of the patient, 3 liters nasal cannula was recorded 92% saturation. HEENT: Head was atraumatic. Eyes, nonicterus. NECK: Supple. CARDIOVASCULAR SYSTEM: S1, S2 audible. LUNGS: Diffuse expiratory wheezing without any crackles. ABDOMEN: Flat, soft, nontender with rather positive bowel sounds. EXTREMITIES: Loss of muscle mass of the patient. There was rather no dryness of the skin lesions or ulcers. There was no cyanosis or clubbing. MUSCULOSKELETAL SYMPTOM: No gross deformities. CENTRAL NERVOUS SYSTEM: Cranial nerves 2-12 intact. SKIN: Visible skin. No lesions or rashes. LABORATORY DATA: Admission CBC on 07/03, hemoglobin 17.6, hematocrit 56.8, platelet count 307,000. The urine drug screen noted positive for benzodiazepine and marijuana. CMP of the patient of 07/03/2017, glucose 119, BUN and creatinine normal, sodium 135, potassium 5.6, CO2 was noted as 40. Lactic acid followup was 2.3, troponin of the patient normal on admission 07/03/2017. [place], [place] REPORT OF CONSULTATION NAME: JO ANN FONG UNIT #: [id number] ROOM: [facility] DOCTOR: JEANCARLOS LEO MD,[facility] BIRTHDATE: [birth year] Follow up lactic acid was noted as normal in 24 hours. CBC repeated on the , normal hemoglobin, hematocrit, platelet count. The blood culture, no bacterial growth taken on of this month. Arterial blood gas for the patient that was done today, pH of 7.42, pCO2 of 63, pO2 59.6 with 2-1/2-liter nasal cannula. CBC this morning, WBC count 12.1, hemoglobin 15.1, hematocrit 49.3, platelet count normal. CMP of the patient yesterday, BUN and creatinine was normal. CO2 of 40. AST of 43. CMP today, CO2 was elevated at 44. The review of the radiology data of the patient personally performed from the PACS images. Chest x-ray of the patient that was done on 07/03/2017 was noted with changes, severe emphysema. There were no acute pulmonary infiltration. Chest x-ray repeated on 07/04 of the patient with similar findings. CT scan of the chest that was done without contrast yesterday was reviewed, shows 1.3 x 1.7 x 1.4 cm spiculated mass of the patient, which has increased in size as compared with a past CT scan of the chest, which was done in 08/2017. Additional small nodules were noted as 7 mm in size in the right middle lobe remains unchanged for this patient. Evidence of a large bullous emphysema was noted in the left mid lung for this patient as well as a chronic finding. In addition to that, paraseptal and centrilobular emphysema was noted. IMPRESSION: 1. The patient will be currently admitted to the hospital. The patient is being treated for acute exacerbation of COPD with acute respiratory failure and acute chronic hypercarbia and hypercapnia. The patient with respiratory failure as well noted secondary to advanced emphysema with FEV1 less than 30%. 2. Current paraseptal emphysema and bullous emphysema of the patient is most likely to chronic marijuana use. 3. Right middle lobe nodule. The patient is highly suspicious for malignancy for the past, refusal of workup in the office documented. 4. Chronic low BMI noted with the protein-calorie malnutrition, very frail status. 5. Chronic dependence on the nicotine as well. 6. Metabolic alkalosis secondary to chronic hypercarbia of the patient and advanced emphysema. 7. General anxiety disorder as well. PLAN OF TREATMENT: At this time, the patient was recommended about therapeutic bronchoscopy because of current severe cough, ineffective sputum expectoration with current frail status. The bronchoscopy will be therapeutic in nature. The risk and benefit of procedure has been discussed with the patient. The patient will be started on Diamox low dose. The patient to improve the metabolic alkalosis. Continue oxygen supplementation, maintain saturation 92% or greater. She is unable to expectorate sputum, so the culture could not be done with the sputum. The bronchial washing culture will be done. No change in antibiotic will be recommended. Nicotine replacement patches will be continued to overcome any nicotine withdrawal. Maximize the nutritional status of the patient as tolerated with additional food nutrition supplements. Other plan of management of the patient to be continued as well with the progression of the illness. Usual care, other plan of therapy and care. Thanks for allowing me to participate in the care of this patient. [place], [place] REPORT OF CONSULTATION NAME: JO ANN FONG UNIT #: [id number] ROOM: [facility] DOCTOR[facility]: [birth year] AMISH ARSHAD MD CM:CONSTR:REPORT OF CONSULTATION 1350 07/09/17 0126 interface
--- NOTE | ~2017-07-03 | PROC NOTE ---
[place], [place] PROCEDURE NOTE NAME: JO ANN FONG UNIT #: [id number] ROOM: 422 DOCTOR: JEANCARLOS LEO MD,AMISH BIRTHDATE: [birth year] DOS: 07/09/2017 PREOPERATIVE DIAGNOSES: Severe nonproductive cough, chest congestion, inability to expectorate sputum with severe cachexia and frail status with ongoing exacerbation of chronic obstructive pulmonary disease and tracheobronchitis. POSTOPERATIVE DIAGNOSES: Copious amount of mucopurulent material removed from the patient causing impaction of the endobronchial tree bilaterally. There were no endobronchial obstructive lesions. PROCEDURE DESCRIPTION: Informed consent was obtained from the patient. She was brought to the OR and placed in supine position. Conscious sedation administered by the Anesthesia Department. After achieving appropriate sedation, airway introduced into the mouth. Bronchoscope was advanced to the airway into laryngeal area. Epiglottis and vocal cords were seen. The bronchoscope was advanced to the vocal cord, into the tracheal lumen. The tracheal lumen was noted with copious amount of mucopurulent mixture, which was noted thick. All secretions were suctioned out to the celi level. The patient was noted with similar secretions causing impaction of all of the right and the left endobronchial subsegments. The secretion was cleared up with normal saline wash, sent for culture. There were no endobronchial obstructive lesion noted. Bronchial opening noted patent for patient after the bronchoscopy. Postoperative findings were discussed in detail with the patient's son in the recovery room. Based on the bronchoscopy, no change in treatment will be necessary. AMISH ARSHAD MD CM:PROCNOTE:PROCEDURE NOTE [id number] AMISH LEO MD
--- NOTE | ~2017-07-03 | EKG ---
[place], [place] ELECTROCARDIOGRAM REPORT NAME: JO ANN FONG UNIT #: [id number] ROOM: 422 DOCTOR: JEANCARLOS LEO MD,AMISH BIRTHDATE: [birth year] DOS: 07/08/2017 The electrocardiogram was done at 10:42 a.m. Normal sinus rhythm noted with heart rate 92 beats per minute. Short RI interval was noted. Right atrial enlargement was also seen. There were no changes of acute ischemia or other abnormalities. AMISH ARSHAD MD CM:EKGRPT:ELECTROCARDIOGRAM REPORT 1345 [id number] AMISH LEO MD
--- NOTE | ~2017-07-03 | PR ---
[place], [place] PROGRESS NOTE [id number] UNIT #: [id number] ROOM: 422 DOCTOR: AMBERLY ALMANZAR DO BIRTHDATE: [birth year] DOS: 07/09/2017 SUBJECTIVE: The patient was seen and examined prior to bronchoscopy in the a.m. The patient has no new complaints at this time. The patient continues to have shortness of breath, cough and mild sputum production. No new complaints at this time. OBJECTIVE: VITAL SIGNS: Temperature 98.4, pulse is 96, respirations 20, blood pressure 123/60, pulse ox is 97% on 3 liters nasal cannula. GENERAL APPEARANCE: The patient is alert and oriented x 3, in no acute distress. HEENT: Eyes are clear. No injection. Nares are patent. Mucous membranes are moist. NECK: Supple, nontender. CARDIOVASCULAR: S1 and S2 noted. Regular rate and rhythm. PULMONARY: Expiratory wheezes in all lung roger, mild crackles in the lung bases. No rhonchi appreciated. ABDOMEN: Soft, nontender with positive bowel sounds. EXTREMITIES: No edema. No erythema. No clubbing. No cyanosis. NEUROLOGIC: Negative for focal deficits. LABORATORY DATA: White count 9.9, hemoglobin 14.6, hematocrit 45.3, platelets count 240. Chemistries: Sodium 135, chloride 90, carbon dioxide 42, creatinine 0.37, glucose 96, calcium 9.2. Blood cultures remain negative. Bronchoscopy washing cultures remain negative at this time. ASSESSMENT: 1. Advanced age, severe centrilobular emphysema. 2. Chronic nicotine abuse. 3. Marijuana abuse. 4. Pulmonary nodule. 5. Chronic low body mass index. 6. Metabolic alkalosis. TREATMENT PLAN: The patient was ____ today, this morning. The mucus plugging was removed via bronchoscopy. Diamox was added 250 daily for 5 to 7 days with repeat labs to follow the carbon dioxide level. No change in Mucinex, Solu-Medrol, Levaquin, DuoNeb therapy for this patient at this time. We will continue to follow the patient and observe for resolution of her acute on chronic exacerbation of her COPD. We will continue to follow the patient in the morning. AMBERLY ALMANZAR DO [place], [place] PROGRESS NOTE NAME: HETALJO ANN Ben UNIT #: [id number] ROOM: [facility] DOCTOR: AMBERLY ALMANZAR DO BIRTHDATE: [birth year] AMISH ARSHAD MD CM:PNARUNA [id number] AMBERLY ALMANZAR DO 07/10/17 0232 interface
--- NOTE | ~2017-07-03 | PR ---
[place], [place] PROGRESS NOTE [id number] UNIT #: [id number] ROOM: 422 DOCTOR: JEANCARLOS LEO MD,AMISH BIRTHDATE: [birth year] DOS: 07/10/2017 SUBJECTIVE: The patient was independently seen and examined, [id number] encounter, history was confirmed. The physical examination was performed. All the available labs for the last 24 hours were reviewed. Changes in medical management was completed after today's assessment. The patient has a bronchoscopy done yesterday with reduction in symptoms of cough, still noted chest congestion and coughing intermittently. Shortness of breath were noted with minimal exertion sometime at rest. Denies symptoms of wheezing or chest pain. Denies symptoms of hemoptysis. The patient denies symptoms of abdominal pain. Her oral appetite was described to be fair. The patient has been eating food, the patient has provided in this hospital. She denies symptoms of headache, diplopia, any pain in the extremities or any joints. PHYSICAL EXAMINATION: VITAL SIGNS: Reviewed, which were noted as heart rate of 101 beats per minute, otherwise remaining vital signs were normal. The pulse oxygen saturation on 3 liters nasal cannula 98% saturation. LUNGS: Noted general reduction in the breath sounds bilaterally with [id number] expiratory wheezing. ABDOMEN: Flat, soft, nontender. EXTREMITIES: Loss of muscle mass. SKIN: Visible skin, no lesions or rashes. MUSCULOSKELETAL SYMPTOMS: Without any acute deformities. LABORATORY DATA: The Gram stain of the bronchial washing on 07/09, many white blood cells, many gram-positive cocci in pairs, chains, and clusters with moderate gram-positive bacilli. Culture preliminary noted as normal ramón. Final culture results were pending. There were no other labs were done today. IMPRESSION: 1. The patient who has been currently noted with severe acute respiratory failure associated with acute on chronic hypercarbic and hypercapnic respiratory failure. 2. The patient with advanced chronic obstructive pulmonary disease with FEV1 noted at 23% in the office, which was done with past pulmonary function test in the office on 08/31/2015. 3. Severe protein-calorie malnutrition and debility and cachexia. 4. Chronic marijuana dependence. 5. Pulmonary nodule, suspected malignancy. 6. The patient with bullous emphysema in the lung, most likely due to marijuana as well. 7. Metabolic alkalosis secondary to the advanced emphysema and hypercarbia. PLAN OF MANAGEMENT: At this time, the patient's culture will be monitored. The routine lab was ordered to be done tomorrow morning. She would benefit from possible assessment and management at the long-term acute care facility. Further potential workup has been discussed with the patient's son. He has a lot of questions as they were ordered to be answer, which was known to me. If the patient will be agreeable, the patient was discharged from the hospital. [place], [place] PROGRESS NOTE NAME: JO ANN FONG UNIT #: [id number] ROOM: 422 DOCTOR: JEANCARLOS LEO MD,AMISH BIRTHDATE: [birth year] She will have further assessment done for the right lung pulmonary nodule in the right middle lobe. In the meantime, continue to get maximal medical management therapy. Continue to receive Diamox, which was started once a day. Monitor labs for the patient prior to consideration making any decision changes to the treatment. AMISH ARSHAD MD CM:PNTRANS 1234 [id number] AMISH LEO MD 07/10/171907 interface
[~2017-07-03 14:11] MED LIST changes: +ALBUTEROL2.5 MG/0.5 INH; +BREO ELLIPTA 11 EACH INH; +FUTURO RESTORI1 EACH MC; +REMERON15 M2 PO; +VENLAFAXINE75 M1 PO
[2017-07-03 16:17] LABS: BILIRUBIN NEGATIVE (NEGATIVE); BLOOD NEGATIVE (NEGATIVE); CLARITY CLEAR (CLEAR); COLOR YELLOW (YELLOW); GLUCOSE NEGATIVE (NEGATIVE); KETONE NEGATIVE (NEGATIVE); LEUKO ESTERASE NEGATIVE (NEGATIVE); NITRITE NEGATIVE (NEGATIVE); PH 6.5 (5.0-9.0); UROBILINOGEN 0.2 E.U./dl (0.2-1.0)
[2017-07-03 16:23] LABS: BASO % 0.1 % (0.0-1.0); HEMATOCRIT 56.8 % (37.0-47.0); HEMOGLOBIN 17.7 g/dl (12.0-16.0); LYMPH # 1.1 10*3/uL (1.3-4.4); LYMPH % 12.5 % (27.0-41.0); MEAN CELL VOLUME 94.2 fl (81.0-99.0); MEAN CORPUSCULAR HGB 29.4 pg (27.0-31.0); MEAN CORPUSCULAR HGB CONC 31.2 g/dl (33.0-37.0); MEAN PLATELET VOLUME 9.8 fl (9.6-12.3); MONO # 0.6 10*3/uL (0.1-1.0); MONO % 6.3 % (3.0-9.0); NEUT # 7.4 10*3/uL (2.3-7.9); NEUT % 80.9 % (47.0-73.0); PLATELET COUNT AUTOMATED 307 10*3/uL (130-400); RED BLOOD COUNT 6.03 10*6/uL (4.10-5.10); RED CELL DISTRI WIDTH 13.7 % (0-14.5); WHITE BLOOD COUNT 9.2 10*3/uL (4.8-10.8)
[2017-07-03 16:26] LABS: URINE AMPHETAMINES < 1000 (1000ng/ml); URINE BARBITURATES < 200 (200ng/ml); URINE BENZODIAZEPINES > 200 (200ng/ml); URINE CANNABINOIDS (THC) > 50 (50ng/ml); URINE COCAINE < 300 (300ng/ml); URINE METHADONE < 300 (300ng/ml); URINE OPIATES < 300 (300ng/ml)
[2017-07-03 16:28] LABS: URINE PHENCYCLIDINE < 25 (25ng/ml)
[2017-07-03 16:31] LABS: BACTERIA TRACE; WBC 0-2 wbc/hpf (0-5)
[2017-07-03 16:38] LABS: ALBUMIN 4.1 gm/dl (3.1-4.5); ALKALINE PHOSPHATASE 102 U/L (45-117); BUN 8 mg/dl (7-24); CHLORIDE 92 mmol/L (98-107); CREATININE 0.69 mg/dL (0.55-1.02); POTASSIUM 5.6 mmol/L (3.5-5.1); SGOT/AST 19 IU/L (3-35); SGPT/ALT 41 U/L (12-78); SODIUM 135 mmol/L (136-145)
[2017-07-03] MEDS ORDERED: PROAIR HFA8.5 GM INH (18:25)
[2017-07-03] MEDS ORDERED: SPIRIVA18 MCG PO (18:27)
[2017-07-03] MEDS ORDERED: VENTOLIN 02.5 MG/3 M INH (18:27)
[2017-07-03] MEDS ORDERED: EFFEXOR XR150 M1 PO (18:28)
[2017-07-04] VITALS: BP 100/62
[2017-07-04 07:45] LABS: MEAN CELL VOLUME 95.6 fl (81.0-99.0); MEAN CORPUSCULAR HGB 29.2 pg (27.0-31.0); MEAN CORPUSCULAR HGB CONC 30.6 g/dl (33.0-37.0); MEAN PLATELET VOLUME 9.9 fl (9.6-12.3); PLATELET COUNT AUTOMATED 248 10*3/uL (130-400); RED BLOOD COUNT 4.79 10*6/uL (4.10-5.10); RED CELL DISTRI WIDTH 13.7 % (0-14.5); WHITE BLOOD COUNT 8.9 10*3/uL (4.8-10.8)
[2017-07-04 07:51] LABS: HEMATOCRIT 45.8 % (37.0-47.0)
[2017-07-04 08:00] VITALS: BP 102/36
[2017-07-04 08:12] LABS: ALBUMIN 3.1 gm/dl (3.1-4.5); BUN 8 mg/dl (7-24); CHLORIDE 93 mmol/L (98-107); CREATININE 0.62 mg/dL (0.55-1.02); SGOT/AST 16 IU/L (3-35); SGPT/ALT 33 U/L (12-78)
[2017-07-04 08:18] LABS: TOTAL CELLS COUNTED 100 #CELLS
[2017-07-04 08:19] LABS: ALKALINE PHOSPHATASE 73 U/L (45-117); FREE T4 0.95 ng/dl (0.76-1.46); PLATELET SUFFICIENCY NORMAL (NORMAL); THYROID STIM HORMONE (HS) 0.526 uIU/ml (0.358-4.75)
[2017-07-04 08:21] LABS: SODIUM 135 mmol/L (136-145)
[2017-07-04 08:26] LABS: POTASSIUM 3.7 mmol/L (3.5-5.1)
[2017-07-04 12:00] VITALS: BP 135/69
[2017-07-04 14:54] LABS: VITAMIN D, 25-HYDROXY 29.6 ng/mL (30-100)
[2017-07-04 16:00] VITALS: BP 114/55
[2017-07-04 20:00] VITALS: BP 130/77
[2017-07-05] VITALS: BP 118/67
[2017-07-05 06:56] LABS: ALKALINE PHOSPHATASE 62 U/L (45-117); BUN 9 mg/dl (7-24); CHLORIDE 94 mmol/L (98-107); CREATININE 0.31 mg/dL (0.55-1.02); POTASSIUM 3.9 mmol/L (3.5-5.1); SGOT/AST 17 IU/L (3-35); SGPT/ALT 27 U/L (12-78); SODIUM 137 mmol/L (136-145); TOTAL PROTEIN 5.7 gm/dL (6.4-8.2)
[2017-07-05 08:00] VITALS: BP 127/60; BP 148/91
[2017-07-05 12:00] VITALS: BP 116/47
[2017-07-05 16:57] VITALS: BP 121/66
[2017-07-05 20:00] VITALS: BP 119/52
[2017-07-06] VITALS: BP 126/55
[2017-07-06 07:15] LABS: BASO % 0.1 % (0.0-1.0); HEMATOCRIT 41.7 % (37.0-47.0); HEMOGLOBIN 13.1 g/dl (12.0-16.0); LYMPH # 0.6 10*3/uL (1.3-4.4); LYMPH % 4.7 % (27.0-41.0); MEAN CORPUSCULAR HGB 29.8 pg (27.0-31.0); MEAN CORPUSCULAR HGB CONC 31.4 g/dl (33.0-37.0); MEAN PLATELET VOLUME 10.5 fl (9.6-12.3); MONO # 0.7 10*3/uL (0.1-1.0); MONO % 5.3 % (3.0-9.0); NEUT # 10.9 10*3/uL (2.3-7.9); NEUT % 89.5 % (47.0-73.0); PLATELET COUNT AUTOMATED 223 10*3/uL (130-400); RED BLOOD COUNT 4.39 10*6/uL (4.10-5.10); RED CELL DISTRI WIDTH 13.7 % (0-14.5); WHITE BLOOD COUNT 12.2 10*3/uL (4.8-10.8)
[2017-07-06 07:46] LABS: ALBUMIN 2.8 gm/dl (3.1-4.5); BUN 8 mg/dl (7-24); CHLORIDE 93 mmol/L (98-107); CREATININE 0.36 mg/dL (0.55-1.02); POTASSIUM 4.8 mmol/L (3.5-5.1); SGOT/AST 17 IU/L (3-35); SGPT/ALT 29 U/L (12-78); SODIUM 137 mmol/L (136-145); TOTAL PROTEIN 5.5 gm/dL (6.4-8.2)
[2017-07-06 07:47] LABS: ALKALINE PHOSPHATASE 54 U/L (45-117)
[2017-07-06 08:00] VITALS: BP 129/59
[2017-07-06 12:00] VITALS: BP 133/65
[2017-07-06 16:00] VITALS: BP 130/65
[2017-07-06 20:00] VITALS: BP 133/56
[2017-07-07] VITALS: BP 90/50
[2017-07-07 07:25] LABS: HEMOGLOBIN 14.6 g/dl (12.0-16.0); MEAN CELL VOLUME 95.2 fl (81.0-99.0); MEAN CORPUSCULAR HGB CONC 30.4 g/dl (33.0-37.0); MEAN PLATELET VOLUME 10.3 fl (9.6-12.3); PLATELET COUNT AUTOMATED 245 10*3/uL (130-400); RED BLOOD COUNT 5.04 10*6/uL (4.10-5.10); RED CELL DISTRI WIDTH 13.8 % (0-14.5); WHITE BLOOD COUNT 13.1 10*3/uL (4.8-10.8)
[2017-07-07 07:49] LABS: TOTAL CELLS COUNTED 100 #CELLS
[2017-07-07 07:50] LABS: PLATELET SUFFICIENCY NORMAL (NORMAL)
[2017-07-07 07:52] LABS: ALBUMIN 3.3 gm/dl (3.1-4.5); ALKALINE PHOSPHATASE 69 U/L (45-117); BUN 14 mg/dl (7-24); CHLORIDE 90 mmol/L (98-107); CREATININE 0.46 mg/dL (0.55-1.02); POTASSIUM 4.8 mmol/L (3.5-5.1); SGOT/AST 43 IU/L (3-35); SGPT/ALT 73 U/L (12-78); SODIUM 135 mmol/L (136-145); TOTAL PROTEIN 6.5 gm/dL (6.4-8.2)
[2017-07-07 08:00] VITALS: BP 128/60
[2017-07-07 12:00] VITALS: BP 127/64
[2017-07-07 16:00] VITALS: BP 113/64
[2017-07-07 20:00] VITALS: BP 121/83
[2017-07-08] VITALS: BP 113/70
[2017-07-08 08:00] VITALS: BP 136/62
[2017-07-08 08:34] LABS: BASO % 0.1 % (0.0-1.0); EOS % 0.1 % (1.0-4.0); HEMATOCRIT 49.3 % (37.0-47.0); HEMOGLOBIN 15.1 g/dl (12.0-16.0); LYMPH # 0.3 10*3/uL (1.3-4.4); LYMPH % 2.1 % (27.0-41.0); MEAN CELL VOLUME 93.7 fl (81.0-99.0); MEAN CORPUSCULAR HGB 28.7 pg (27.0-31.0); MEAN CORPUSCULAR HGB CONC 30.6 g/dl (33.0-37.0); MEAN PLATELET VOLUME 10.6 fl (9.6-12.3); MONO % 8.3 % (3.0-9.0); NEUT # 10.8 10*3/uL (2.3-7.9); PLATELET COUNT AUTOMATED 269 10*3/uL (130-400); RED BLOOD COUNT 5.26 10*6/uL (4.10-5.10); RED CELL DISTRI WIDTH 13.6 % (0-14.5); WHITE BLOOD COUNT 12.1 10*3/uL (4.8-10.8)
[2017-07-08 08:51] LABS: ALBUMIN 3.2 gm/dl (3.1-4.5); ALKALINE PHOSPHATASE 60 U/L (45-117); BUN 11 mg/dl (7-24); CHLORIDE 90 mmol/L (98-107); CREATININE 0.41 mg/dL (0.55-1.02); POTASSIUM 4.2 mmol/L (3.5-5.1); SGOT/AST 25 IU/L (3-35); SGPT/ALT 61 U/L (12-78); SODIUM 135 mmol/L (136-145); TOTAL PROTEIN 6.2 gm/dL (6.4-8.2)
[2017-07-08 10:28] LABS: ABG BASE EXCESS 13.1 mmol/L (-2.0-2.0); ABG HCO3 40.8 mmol/l (22-26); ABG O2 SATURATION 92.2 % (95-97); ARTERIAL BLOOD GAS PCO2 63.7 mmHg (35-45); ARTERIAL BLOOD GAS PH 7.421 (7.35-7.45); ARTERIAL BLOOD GAS PO2 59.6 mmHg (80-90)
[2017-07-08 12:00] VITALS: BP 136/66
[2017-07-08 16:00] VITALS: BP 136/66
[2017-07-08 19:44] VITALS: BP 125/50
[2017-07-09] VITALS (8 sets, daily range): BP systolic 102–155; BP diastolic 58–70
[2017-07-09 07:12] LABS: BASO % 0.1 % (0.0-1.0); EOS % 0.1 % (1.0-4.0); HEMATOCRIT 45.3 % (37.0-47.0); HEMOGLOBIN 14.6 g/dl (12.0-16.0); LYMPH # 0.5 10*3/uL (1.3-4.4); LYMPH % 5.5 % (27.0-41.0); MEAN CELL VOLUME 93.2 fl (81.0-99.0); MEAN CORPUSCULAR HGB CONC 32.2 g/dl (33.0-37.0); MEAN PLATELET VOLUME 10.4 fl (9.6-12.3); MONO # 0.7 10*3/uL (0.1-1.0); MONO % 7.3 % (3.0-9.0); NEUT # 8.6 10*3/uL (2.3-7.9); NEUT % 86.7 % (47.0-73.0); PLATELET COUNT AUTOMATED 240 10*3/uL (130-400); RED BLOOD COUNT 4.86 10*6/uL (4.10-5.10); RED CELL DISTRI WIDTH 13.6 % (0-14.5); WHITE BLOOD COUNT 9.9 10*3/uL (4.8-10.8)
[2017-07-09 07:30] LABS: BUN 17 mg/dl (7-24); CHLORIDE 90 mmol/L (98-107); CREATININE 0.37 mg/dL (0.55-1.02); POTASSIUM 4.5 mmol/L (3.5-5.1); SODIUM 135 mmol/L (136-145)
[2017-07-10] VITALS: BP 144/77
[2017-07-10 08:00] VITALS: BP 134/64
[2017-07-10 12:00] VITALS: BP 150/76
[2017-07-10] MEDS ORDERED: MUCINEX ER600 MG PO (13:54)
[2017-07-10] MEDS ORDERED: SOLU-MEDRO40 MG/1 ML IV (13:54)
[2017-07-10] MEDS ORDERED: LEVAQUIN750 M1 IV (13:54)
[2017-07-10] MEDS ORDERED: ACETAZOLAMIDE250 MG PO (13:54)
[2017-07-10 14:10] LABS: ACID FAST SMEAR Negative (.); ACID FAST SPEC PROCESSING Concentration (.)
== END 2017-07-10 18:47 | DRG 871 ==
LOC: ED 14:11 → 4E 17:31 → EDHOLD 17:31 → 4E 17:42
PROVIDERS: Emergency Medicine; Internal Medicine; Internal Medicine Critical Care Medicine; Internal Medicine Hospice and Palliative Medicine; Nurse Practitioner
DX: A41.9 Sepsis, unspecified organism (principal); E43 Unspecified severe protein-calorie malnutrition; J18.9 Pneumonia, unspecified organism; E87.3 Alkalosis; J96.01 Acute respiratory failure with hypoxia; J96.02 Acute respiratory failure with hypercapnia; L89.152 Pressure ulcer of sacral region, stage 2; D75.1 Secondary polycythemia; E87.1 Hypo-osmolality and hyponatremia; J96.11 Chronic respiratory failure with hypoxia; J96.12 Chronic respiratory failure with hypercapnia; J44.0 Chronic obstructive pulmonary disease with (acute) lower respiratory infection; J44.1 Chronic obstructive pulmonary disease with (acute) exacerbation; I50.32 Chronic diastolic (congestive) heart failure; Z68.1 Body mass index [BMI] 19.9 or less, adult; E87.5 Hyperkalemia; E87.8 Other disorders of electrolyte and fluid balance, not elsewhere classified; R65.20 Severe sepsis without septic shock; Z96.641 Presence of right artificial hip joint; F32.9 Major depressive disorder, single episode, unspecified; F41.1 Generalized anxiety disorder; R73.9 Hyperglycemia, unspecified; F12.10 Cannabis abuse, uncomplicated; F17.200 Nicotine dependence, unspecified, uncomplicated; R91.1 Solitary pulmonary nodule; R62.7 Adult failure to thrive; Z99.81 Dependence on supplemental oxygen; Z88.1 Allergy status to other antibiotic agents; Z88.5 Allergy status to narcotic agent; Z91.041 Radiographic dye allergy status; Z79.899 Other long term (current) drug therapy; Z98.51 Tubal ligation status; Z90.49 Acquired absence of other specified parts of digestive tract; Z82.49 Family history of ischemic heart disease and other diseases of the circulatory system; Z80.0 Family history of malignant neoplasm of digestive organs; Z80.8 Family history of malignant neoplasm of other organs or systems; Z91.030 Bee allergy status

== ENCOUNTER 2017-08-14 08:18 | Emergency (ER) | payer MEDICARE, OTHER ==
[~2017-08-14] VITALS: Ht 157.4 cm; Wt 49.9 kg
[~2017-08-14 08:18] MED LIST changes: +ACETAZOLAMIDE250 MG PO; +LEVAQUIN750 M1 IV; +MUCINEX ER600 MG PO; +SOLU-MEDRO40 MG/1 ML IV; +SPIRIVA18 MCG PO; +VENTOLIN 02.5 MG/3 M INH
[2017-08-14] MEDS ORDERED: RESTORIL15 MG PO (08:50)
[2017-08-14] MEDS ORDERED: PREDNISONE10 MG PO (08:50)
[2017-08-14] MEDS ORDERED: METOPROLOL SUCC50 M1 PO (08:50)
[2017-08-14 09:03] LABS: HEMATOCRIT 42.2 % (37.0-47.0); HEMOGLOBIN 13.8 g/dl (12.0-16.0); MEAN CELL VOLUME 87.2 fl (81.0-99.0); MEAN CORPUSCULAR HGB 28.5 pg (27.0-31.0); MEAN CORPUSCULAR HGB CONC 32.7 g/dl (33.0-37.0); MEAN PLATELET VOLUME 8.8 fl (9.6-12.3); PLATELET COUNT AUTOMATED 360 10*3/uL (130-400); RED BLOOD COUNT 4.84 10*6/uL (4.10-5.10); RED CELL DISTRI WIDTH 15.6 % (0-14.5); WHITE BLOOD COUNT 18.7 10*3/uL (4.8-10.8)
[2017-08-14 09:11] LABS: BILIRUBIN NEGATIVE (NEGATIVE); BLOOD TRACE-INTACT (NEGATIVE); CLARITY CLEAR (CLEAR); COLOR YELLOW (YELLOW); GLUCOSE NEGATIVE (NEGATIVE); KETONE NEGATIVE (NEGATIVE); LEUKO ESTERASE NEGATIVE (NEGATIVE); NITRITE NEGATIVE (NEGATIVE); UROBILINOGEN 0.2 E.U./dl (0.2-1.0)
[2017-08-14 09:21] LABS: TOTAL CELLS COUNTED 100 #CELLS
[2017-08-14 09:22] LABS: PLATELET SUFFICIENCY NORMAL (NORMAL)
[2017-08-14 09:28] LABS: ALBUMIN 2.8 gm/dl (3.1-4.5); ALKALINE PHOSPHATASE 81 U/L (45-117); BUN 14 mg/dl (7-24); CHLORIDE 96 mmol/L (98-107); POTASSIUM 4.3 mmol/L (3.5-5.1); SGOT/AST 23 IU/L (3-35); SGPT/ALT 26 U/L (12-78); SODIUM 134 mmol/L (136-145); TOTAL PROTEIN 7.1 gm/dL (6.4-8.2)
== END 2017-08-14 15:54 | disposition short-term general hospital (02) ==
LOC: ED 08:18
PROVIDERS: Emergency Medicine
DX: N13.2 Hydronephrosis with renal and ureteral calculous obstruction (principal); J18.1 Lobar pneumonia, unspecified organism; F17.200 Nicotine dependence, unspecified, uncomplicated; F12.10 Cannabis abuse, uncomplicated; I50.9 Heart failure, unspecified; J44.9 Chronic obstructive pulmonary disease, unspecified; E78.00 Pure hypercholesterolemia, unspecified; L89.152 Pressure ulcer of sacral region, stage 2; Z90.49 Acquired absence of other specified parts of digestive tract; Z98.51 Tubal ligation status; Z96.641 Presence of right artificial hip joint; Z99.81 Dependence on supplemental oxygen; Z79.899 Other long term (current) drug therapy; Z91.030 Bee allergy status; Z88.5 Allergy status to narcotic agent; Z88.1 Allergy status to other antibiotic agents; Z91.041 Radiographic dye allergy status

== ENCOUNTER → 2017-09-30 | Outpatient (CLI) | payer MEDICARE, OTHER ==
[2017-09-30] VITALS (10 sets, daily range): BP systolic 99–182; BP diastolic 54–68
[~2017-09-30] VITALS: Ht 157.4 cm; Wt 44.5 kg
[~2017-09-30] MED LIST changes: +MECLIZINE HCL25 M2 PO; +METOPROLOL SUCC50 M1 PO; +RESTORIL15 MG PO
[2017-09-30 10:42] LABS: ACT PARTIAL THROMBO TIME 25.3 SECONDS (20.8-31.5)
== END | disposition home or self-care (01) ==
LOC: SDC 09-18 13:00 → RAD 09-18 13:00 → EDSTATUS 09-24 11:00 → SDC 09-24 11:00
PROVIDERS: Internal Medicine Critical Care Medicine
DX: R91.1 Solitary pulmonary nodule (principal); Z88.8 Allergy status to other drugs, medicaments and biological substances; J44.9 Chronic obstructive pulmonary disease, unspecified; F31.9 Bipolar disorder, unspecified; F41.9 Anxiety disorder, unspecified; Z90.49 Acquired absence of other specified parts of digestive tract; Z98.51 Tubal ligation status; Z96.641 Presence of right artificial hip joint

== ENCOUNTER 2017-10-07 15:13 | Inpatient (IN) | payer MEDICARE, OTHER ==
[~2017-10-07] VITALS: Ht 157.5 cm; Wt 42.8 kg
[~2017-10-07 15:13] MED LIST changes: -MECLIZINE HCL25 M2 PO
[2017-10-07 15:16] VITALS: BP 159/69
[2017-10-07 16:40] LABS: BASO % 0.1 % (0.0-1.0); HEMOGLOBIN 13.8 g/dl (12.0-16.0); LYMPH % 20.9 % (27.0-41.0); MEAN CELL VOLUME 90.5 fl (81.0-99.0); MEAN CORPUSCULAR HGB 28.4 pg (27.0-31.0); MEAN CORPUSCULAR HGB CONC 31.4 g/dl (33.0-37.0); MEAN PLATELET VOLUME 9.4 fl (9.6-12.3); MONO # 0.7 10*3/uL (0.1-1.0); MONO % 7.5 % (3.0-9.0); NEUT # 6.9 10*3/uL (2.3-7.9); NEUT % 71.1 % (47.0-73.0); PLATELET COUNT AUTOMATED 315 10*3/uL (130-400); RED BLOOD COUNT 4.86 10*6/uL (4.10-5.10); RED CELL DISTRI WIDTH 15.7 % (0-14.5); WHITE BLOOD COUNT 9.8 10*3/uL (4.8-10.8)
[2017-10-07 16:57] LABS: ALBUMIN 3.6 gm/dl (3.1-4.5); ALKALINE PHOSPHATASE 96 U/L (45-117); BUN 7 mg/dl (7-24); CHLORIDE 96 mmol/L (98-107); CREATININE 0.44 mg/dL (0.55-1.02); POTASSIUM 4.6 mmol/L (3.5-5.1); SGOT/AST 12 IU/L (3-35); SGPT/ALT 13 U/L (12-78); SODIUM 136 mmol/L (136-145); TOTAL PROTEIN 7.4 gm/dL (6.4-8.2)
[2017-10-07 17:07] LABS: ACT PARTIAL THROMBO TIME 26.5 SECONDS (20.8-31.5); INTERNATIONAL NORM RATIO 0.9 (2.0-3.5)
[2017-10-07 19:34] LABS: BILIRUBIN NEGATIVE (NEGATIVE); BLOOD NEGATIVE (NEGATIVE); CLARITY CLEAR (CLEAR); COLOR YELLOW (YELLOW); GLUCOSE NEGATIVE (NEGATIVE); KETONE NEGATIVE (NEGATIVE); LEUKO ESTERASE NEGATIVE (NEGATIVE); NITRITE NEGATIVE (NEGATIVE); PH 6.5 (5.0-9.0); UROBILINOGEN 0.2 E.U./dl (0.2-1.0)
[2017-10-07 19:43] LABS: BACTERIA TRACE; EPITHELIAL CELLS 0-2; MUCOUS TRACE; WBC 0-2 wbc/hpf (0-5)
[2017-10-07 20:00] VITALS: BP 155/62
[2017-10-08] VITALS: BP 123/65
[2017-10-08 06:47] LABS: BASO % 0.1 % (0.0-1.0); HEMATOCRIT 42.1 % (37.0-47.0); HEMOGLOBIN 13.2 g/dl (12.0-16.0); LYMPH # 1.8 10*3/uL (1.3-4.4); LYMPH % 24.2 % (27.0-41.0); MEAN CELL VOLUME 90.1 fl (81.0-99.0); MEAN CORPUSCULAR HGB 28.3 pg (27.0-31.0); MEAN CORPUSCULAR HGB CONC 31.4 g/dl (33.0-37.0); MEAN PLATELET VOLUME 9.9 fl (9.6-12.3); MONO # 0.7 10*3/uL (0.1-1.0); NEUT # 4.8 10*3/uL (2.3-7.9); NEUT % 65.3 % (47.0-73.0); PLATELET COUNT AUTOMATED 298 10*3/uL (130-400); RED BLOOD COUNT 4.67 10*6/uL (4.10-5.10); RED CELL DISTRI WIDTH 15.7 % (0-14.5); WHITE BLOOD COUNT 7.4 10*3/uL (4.8-10.8)
[2017-10-08 06:52] LABS: BUN 7 mg/dl (7-24); CHLORIDE 98 mmol/L (98-107); CHOLESTEROL 152 mg/dL (<200); CREATININE 0.43 mg/dL (0.55-1.02); HDL CHOLESTEROL 64 mg/dl (40-60); LDL CHOLESTEROL 68 mg/dL (9-159); PHOSPHOROUS 4.1 mg/dL (2.5-4.9); POTASSIUM 3.7 mmol/L (3.5-5.1); SODIUM 138 mmol/L (136-145); TRIGLYCERIDES 98 mg/dl (<150); VLDL CHOLESTEROL 20 mg/dL (6-40)
[2017-10-08 07:55] VITALS: BP 138/65
[2017-10-08 11:49] VITALS: BP 115/45
[2017-10-08 15:51] VITALS: BP 150/58
[2017-10-08 20:00] VITALS: BP 150/69
[2017-10-09] VITALS: BP 129/66
[2017-10-09 07:47] LABS: BUN 8 mg/dl (7-24); CHLORIDE 106 mmol/L (98-107); POTASSIUM 3.6 mmol/L (3.5-5.1); SODIUM 142 mmol/L (136-145)
[2017-10-09 08:00] VITALS: BP 131/99
[2017-10-09 08:08] LABS: CREATININE 0.25 mg/dL (0.55-1.02)
[2017-10-09 12:00] VITALS: BP 147/45
[2017-10-09 20:00] VITALS: BP 141/61
[2017-10-10] VITALS: BP 141/66
[2017-10-10 08:00] VITALS: BP 140/67
[2017-10-10] MEDS ORDERED: MECLIZINE HCL25 M2 PO (10:58)
[2017-10-10] MEDS ORDERED: PREDNISONE10 MG PO (10:58)
[2017-10-10 12:00] VITALS: BP 125/51
== END 2017-10-10 15:20 | disposition home or self-care (01) | DRG 312 ==
LOC: ED 15:13 → 5E 19:05 → EDHOLD 19:05 → 5E 19:24
PROVIDERS: Internal Medicine; Internal Medicine Nephrology; Nurse Practitioner
DX: I95.1 Orthostatic hypotension (principal); E87.8 Other disorders of electrolyte and fluid balance, not elsewhere classified; I50.32 Chronic diastolic (congestive) heart failure; C34.90 Malignant neoplasm of unspecified part of unspecified bronchus or lung; J43.2 Centrilobular emphysema; D72.810 Lymphocytopenia; J93.9 Pneumothorax, unspecified; Z68.1 Body mass index [BMI] 19.9 or less, adult; F32.9 Major depressive disorder, single episode, unspecified; F41.1 Generalized anxiety disorder; Z96.641 Presence of right artificial hip joint; D72.818 Other decreased white blood cell count; R73.9 Hyperglycemia, unspecified; R63.6 Underweight; Z66 Do not resuscitate; Z51.5 Encounter for palliative care; Z99.81 Dependence on supplemental oxygen; Z88.6 Allergy status to analgesic agent; Z91.030 Bee allergy status; Z91.041 Radiographic dye allergy status; Z79.899 Other long term (current) drug therapy; Z98.51 Tubal ligation status; Z90.89 Acquired absence of other organs; Z90.49 Acquired absence of other specified parts of digestive tract; Z87.891 Personal history of nicotine dependence; Z82.49 Family history of ischemic heart disease and other diseases of the circulatory system; Z80.1 Family history of malignant neoplasm of trachea, bronchus and lung; Z84.89 Family history of other specified conditions

== ENCOUNTER 2017-12-03 14:13 | Inpatient (IN) | payer MEDICARE, OTHER ==
[~2017-12-03] VITALS: Ht 157.5 cm; Wt 43.8 kg
--- NOTE | ~2017-12-03 | CON ---
[place], [place] REPORT OF CONSULTATION [id number] UNIT #: [id number] ROOM: 529 DOCTOR: AMISH ALMARAZ MD BIRTHDATE: [birth year] DOS: 12/04/2017 PULMONARY CONSULTATION, EVALUATION, MANAGEMENT CONSULTATION REQUESTED BY: Hospitalist service. REASON FOR CONSULTATION: Assessment of exacerbation of COPD. HISTORY OF PRESENT ILLNESS: This is a 72-year-old white female patient with a history of end-stage COPD with chronic hypoxic and hypercapnic respiratory failure. She has been admitted to the hospital on 12/03/2017. She came into the hospital Emergency Room having symptoms of generalized weakness and fatigue with increased shortness of breath. Shortness of breath has been reported getting gradually increased in the past few days as per the patient. The patient denies any symptoms of chest pain. She does have mild wheezing and nonproductive cough. The patient denies symptoms of hemoptysis. Denies symptoms of chest trauma. REVIEW OF SYSTEMS: CONSTITUTIONAL: Symptoms of fatigue and tiredness reported. Without any symptoms of fever or chills. EYES: Denies any burning, redness, or tenderness. EARS, NOSE AND THROAT: Denies sore throat, hoarseness, otalgia, or postnasal drip. CARDIOVASCULAR: Denies symptoms of palpitation, anginal pain, edema or pain of the lower extremities. GASTROINTESTINAL: Denies dysphagia, nausea, vomiting, diarrhea, abdominal pain, hematemesis, melena, or hematochezia. Denies any recent abnormal weight loss history. GENITOURINARY: No dysuria, suprapubic pain, or hematuria. MUSCULOSKELETAL: Denies any acute joint pain, redness, or tenderness. SKIN: Denies abnormal lesions or rashes. CENTRAL NERVOUS SYSTEM: Denies dizziness, headache, diplopia, or syncopal episodes. Remaining systems were reviewed, they were noted all negative. PAST MEDICAL HISTORY: Known with: 1. General anxiety disorder and depression. 2. History of COPD as well. 3. Non-small cell lung cancer as invasive adenocarcinoma diagnosed from right mid lung biopsy on 09/28/2017. So far, the patient has not made an appointment for the treatment. 4. Chronic hypercapnic respiratory failure. 5. Chronic hypoxic respiratory failure. PAST SURGICAL HISTORY: 1. Appendectomy. 2. Tubal ligation. 3. Right hip replacement. 4. Therapeutic bronchoscopy. [place], [place] REPORT OF CONSULTATION NAME: JO ANN FONG UNIT #: [id number] ROOM: 529 DOCTOR: AMISH ALMARAZ MD BIRTHDATE: [address]-guided needle aspiration biopsy, right middle lobe. Nodule previously noted as 1.7 cm x 1.3 cm x 1.4 cm in size on 09/28/2017. SOCIAL HISTORY: The patient is and lives at home. Denies history of alcohol use or any illicit drugs. She has 2 children. The patient was noted with history of tobacco use at the age of 19 years of 1 pack of cigarettes per day that was discontinued by the patient in 06/2017. FAMILY HISTORY: The patient's father at age 6767 years old with complications of myocardial infarction. Mother at age 6464 year old with complications of lung cancer. CURRENT MEDICATIONS: Administered for this hospitalization were noted as use of hydralazine, hydroxyzine, Lovenox for DVT prophylaxis, Solu-Medrol 40 mg b.i.d., DuoNeb q. 4 hours, magnesium oxide, Levaquin, and temazepam. DRUG ALLERGIES: 1. IVP DYE. 2. CODEINE PHOSPHATE. 3. KEFLEX. PHYSICAL EXAMINATION: GENERAL: The patient is a 72-year-old female who has been noted currently awake and alert, without any acute distress. Height of 5 feet 2 inches, weight of 96 pounds. BMI 15. VITAL SIGNS: Which were recorded show the temperature noted normal since admission, respiratory rate 20-22, heart rate 85-91, blood pressure 115/59-137/73. Pulse oxygen saturation on 3-1/2 liter nasal cannula 96% saturation. HEENT: Head was atraumatic. Eyes nonicterus. NECK: Supple. CARDIOVASCULAR: S1, S2 audible. LUNGS: Noted with general reduction in breath sounds bilaterally, without any crackles. Scattered expiratory wheezing. ABDOMEN: Soft, flat, nontender. Bowel sounds present. EXTREMITIES: Without any acute edema, clubbing, or cyanosis. CENTRAL NERVOUS SYSTEM: Cranial nerves 2-12 are intact. MUSCULOSKELETAL: Without any acute deformities. LABORATORY DATA: CMP on 12/03/2017: BUN 13, creatinine was normal, sodium was normal, CO2 was 34. PT and PTT were noted normal yesterday. Lactic acid 0.6. CBC on 12/03/2017: WBC count 10.6, hemoglobin 15, hematocrit 47.4, platelet count 240,000. CBC this morning: Essentially normal. BMP this morning: Glucose 124, BUN normal, creatinine normal, CO2 is 33. IMAGING DATA: CT scan of the head that was done in the Emergency Room yesterday because of dizziness reported no acute intracranial abnormalities in the CT scan, which was done without contrast. Chest x-ray was noted with increased interstitial markings with severe emphysematous changes. [place], [place] REPORT OF CONSULTATION NAME: JO ANN FONG UNIT #: [id number] ROOM: 529 DOCTOR: JEANCARLOS LEO MD,AMISH BIRTHDATE: [birth year] IMPRESSION: The patient who has been currently admitted noted with: 1. General weakness and fatigue with a recent diagnosis of invasive adenocarcinoma of the right middle lobe with possible lymphangitic spread in the lung cannot be completely excluded with current chest x-ray. 2. The patient with dizziness ____ any metastatic disease in the brain ____ cannot be completely excluded, as the CT scan without contrast does not rule out the possibility of metastatic disease, the MRI will be the preferred modality. 3. Past history of nicotine abuse. 4. The patient with chronic cachexia secondary to advanced chronic obstructive pulmonary disease and possibly related to the underlying lung malignancy, which is still untreated. PLAN OF MANAGEMENT: I agree with the use of corticosteroids, bronchodilators, antibiotics, and the nebulized treatments. CT scan of the chest was ordered without contrast for further assessment of her abnormal chest x-ray. She has had all the information needed to make an appointment for the Oncology services of her choice. It seems like she has not made that appointment yet. Both of her sons are also known and aware of this patient to make an appointment with the oncologist of her choice. Overall prognosis of the patient remains guarded at the present time. Other supportive therapy plan of management, care plan to be continued. Usual care. All other supportive plan of treatment and therapies. Continue anxiolytics. Arterial blood gas will be ordered for the patient to assess hypercarbia. Thank you for allowing me to participate in the care of this patient. AMISH ARSHAD MD CM:CONSTR:REPORT OF CONSULTATION 1218 12/04/17 1635 interface
--- NOTE | ~2017-12-03 | PR ---
[place], [place] PROGRESS NOTE NAME: JO ANN FONG UNIT #: [id number] ROOM: 529 DOCTOR: JEANCARLOS LEO MD,AMISH BIRTHDATE: [birth year] DOS: 12/06/2017 SUBJECTIVE: She was noted comfortable at this time without any acute distress, has not been noted any symptoms of chest pain, coughing, shortness of breath or confusion. The patient has been improved. OBJECTIVE: VITAL SIGNS: This morning was noted as normal temperature, respiratory rate 18, heart rate of 99, blood pressure 135/82. Pulse ox saturation on 3 liters 95% saturation. HEENT: Examination shows head was atraumatic. Eyes nonicterus. NECK: Supple. CARDIOVASCULAR: S1, S2 audible. LUNGS: Without any wheeze or crackles at this time. Breaths are noted [id number] decreased bilaterally. ABDOMEN: Soft, nontender. EXTREMITIES: Without any acute edema. IMPRESSION: 1. The patient with progressive improvement and resolution of the acute exacerbation of chronic obstructive pulmonary disease and confusional status 2. 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 So far, has not been treated and unable to make an appointment, but to be assessed by the Medical Oncology so far twice. The decision has been still awaited. PLAN OF TREATMENT: The patient could be discharged home whenever desired. Outpatient followup as previously scheduled. AMISH ARSHAD MD CM:PNTRANS [id number] AMISH LEO MD 12/07/17 0038 interface
--- NOTE | ~2017-12-03 | PR ---
[place], [place] PROGRESS NOTE NAME: JO ANN FONG [id number] UNIT #: [id number] ROOM: 529 DOCTOR: JEANCARLOS LEO MD,AMISH BIRTHDATE: [birth year] DOS: 12/05/2017 SUBJECTIVE: The patient was noted comfortable at this time, resting with noted symptoms of shortness breath that time and noted with confusional status yesterday for the patient. She has been ordered arterial blood gas, which was reviewed. She started the BiPAP for few hours by the patient. Denies symptoms of chest pain or any hemoptysis. Denies symptoms of nausea, vomiting. Denies any further symptoms of dizziness, headache. The weakness which was noted in general was partially decreased. There were no symptoms of hemoptysis. OBJECTIVE: VITAL SIGNS: Blood pressure was noted as 141/56, respiration 18, heart rate of 87, temperature normal. Pulse ox saturation on 3 liters 97% saturation. HEENT: Head was atraumatic. Eyes nonicterus. NECK: Supple. CARDIOVASCULAR: S1, S2 is audible. LUNGS: The patient was noted without any wheezing or crackle. Breaths are noted mildly decreased improvement in air entry from yesterday. There was no wheezing. ABDOMEN: Soft, nontender. Bowel sounds present. EXTREMITIES: The patient was noted without any acute edema. MUSCULOSKELETAL: Without acute deformities. CENTRAL NERVOUS SYSTEM: The patient noted intact. LABORATORY DATA: CT scan of the chest was completed yesterday as ordered for the patient, it was compared to the CT scan on 07/07/2017 personally. It shows evidence of acute infiltration noted in the right upper lung, basilar subsegment would be considered for acute pneumonia not noted on the CT scan of 07/07/2017. A 1.7 cm solid nodule noted with spiculation, right middle lobe already been known and diagnosed with patient has adenocarcinoma. Addition of 6 mm nodule noted in the right middle lobe as well for the patient close to pleural surface. Severe emphysema noted with a large bullous emphysema noted in the left lingula. Some other additional area of scarring, which is noted in the lower lung noted chronic and unchanged. The arterial blood gas of yesterday the patient was on half liter nasal cannula, pH of 7.37, pCO2 of 55, pO2 72.9. Blood culture on 13 of this month showed no bacterial growth. There were no other additional labs done today. IMPRESSION: 1. The patient with some confusional status noted with acute exacerbation of chronic obstructive pulmonary disease. 2. The patient with evidence of acute pneumonia suspected in the right upper lobe in basilar subsegment as well. 3. The patient has advanced emphysema. 4. Past history of nicotine abuse. 5. ____ debility with general weakness and fatigue. PLAN OF MANAGEMENT: Continue antibiotics, bronchodilators, oxygen supplementation, other plan of management. No other additional change in the treatment at this time will be necessary. All other supportive plan of [place], [place] PROGRESS NOTE NAME: JO ANN FONG UNIT #: [id number] ROOM: 529 DOCTOR: JEANCARLOS LEO MD,AMISH BIRTHDATE: [birth year] management to be continued. Usual care. AMISH ARSHAD MD CM:PNARUNA [id number] AMISH LEO MD 12/05/17 1612 interface
--- NOTE | ~2017-12-03 | CON ---
[place], [place] REPORT OF CONSULTATION NAME: JO ANN FONG UNIT #: [id number] ROOM: 529 DOCTOR: GERMAN HURST MD BIRTHDATE: [birth year] DOS: 12/04/2017 CHIEF COMPLAINT: "Oh doc, I have been so depressed, I cannot go on like this." HISTORY OF PRESENT ILLNESS: This is a 72-year-old white female who presented to [facility] with the chief complaint of increased shortness of breath and weakness. The patient was admitted to the medical floor due to these factors and in the course of evaluation, has openly admitted to being increasingly despondent and depressed. Per the chart, the patient's son states that his mother stays in bed most of the day and does not get out of bed, other than to use the restroom. He states that she has lost interest in everything. She likewise states that the depression has been intensifying over the last month and she notes multiple neurovegetative symptoms including poor sleep and appetite, anergia, anhedonia, hopeless, helpless feelings, crying spells, and inability to cope. She reports that of lately the crying spells have been increasingly intense and she wishes she could have something that would help her combat the depression. She does report having seen Dr. Jackie Hardy the psychologist at [facility] for counseling and approximately 50 years ago did see a psychiatrist in the [place] area, although she cannot remember the name. She could not remember the names of the antidepressants that she has been on, although she states she has been on multiple antidepressants. PAST MEDICAL HISTORY: Remarkable for ataxia, congestive heart failure, COPD, hyperglycemia, recently diagnosed lung cancer and malnutrition. SOCIAL HISTORY: The patient socially does not drink alcohol. She is a former heavy smoker, smoking at least 2 packs a day for at least 40 years. She also has a history of marijuana abuse, but denies any other illicit drug use. MENTAL STATUS: She is alert and oriented. Mood is overwhelmingly depressed. Affect is flat, blunted, and constricted. She endorses multiple neurovegetative symptoms and states that she is so depressed she does not know if she can go on. There is no hypomania or duyen. There are no psychotic symptoms. She did have some word finding difficulty and short-term memory has some gaps, but overall she is relatively intact. DIAGNOSIS: Major depression, recurrent, severe. PLAN: I will go ahead and start her on Remeron 15 mg at bedtime. I have ordered her Vistaril 50 mg p.o. now to decrease anxiety and 50 mg q.6 hours p.r.n. I did discuss with her the option of going to the psychiatric unit which she joked with me that she is not a looney bird, but I asked her to please consider it. She would be appropriate for a [facility] admission. [place], [place] REPORT OF CONSULTATION NAME: JO ANN FONG UNIT #: [id number] ROOM: 529 DOCTOR: GERMAN HURST MD BIRTHDATE: [birth year] GERMAN HURST MD CM:CONSTR:REPORT OF CONSULTATION 1002 12/04/17 1450 interface
[2017-12-03 14:13] VITALS: BP 133/62
[~2017-12-03 14:13] MED LIST changes: +MECLIZINE HCL25 M2 PO
[2017-12-03] MEDS ORDERED: ATIVAN0.5 MG PO (14:15)
[2017-12-03] MEDS ORDERED: METOPROLOL SUCC50 M1 PO (14:15)
[2017-12-03] MEDS ORDERED: RESTORIL7.5 M1 PO (14:15)
[2017-12-03] MEDS ORDERED: PREDNISONE5 MG PO (14:16)
[2017-12-03 15:04] LABS: BASO % 0.1 % (0.0-1.0); HEMATOCRIT 47.4 % (37.0-47.0); LYMPH # 1.9 10*3/uL (1.3-4.4); LYMPH % 17.9 % (27.0-41.0); MEAN CELL VOLUME 90.5 fl (81.0-99.0); MEAN CORPUSCULAR HGB 28.6 pg (27.0-31.0); MEAN CORPUSCULAR HGB CONC 31.6 g/dl (33.0-37.0); MEAN PLATELET VOLUME 10.2 fl (9.6-12.3); MONO # 0.8 10*3/uL (0.1-1.0); MONO % 7.7 % (3.0-9.0); NEUT # 7.9 10*3/uL (2.3-7.9); PLATELET COUNT AUTOMATED 240 10*3/uL (130-400); RED BLOOD COUNT 5.24 10*6/uL (4.10-5.10); RED CELL DISTRI WIDTH 13.7 % (0-14.5); WHITE BLOOD COUNT 10.6 10*3/uL (4.8-10.8)
[2017-12-03 15:13] LABS: ACT PARTIAL THROMBO TIME 25.5 SECONDS (20.8-31.5); INTERNATIONAL NORM RATIO 0.9 (2.0-3.5)
[2017-12-03 15:21] LABS: ALBUMIN 3.8 gm/dl (3.1-4.5); ALKALINE PHOSPHATASE 80 U/L (45-117); BUN 13 mg/dl (7-24); CHLORIDE 102 mmol/L (98-107); CREATININE 0.45 mg/dL (0.55-1.02); LIPASE 77 U/L (73-393); POTASSIUM 4.3 mmol/L (3.5-5.1); SGOT/AST 23 IU/L (3-35); SGPT/ALT 25 U/L (12-78); SODIUM 140 mmol/L (136-145); TOTAL PROTEIN 7.5 gm/dL (6.4-8.2)
[2017-12-03 15:24] LABS: TROPONIN I < 0.015 ng/ml (<0.045)
[2017-12-03 17:48] VITALS: BP 137/73
[2017-12-03] MEDS ORDERED: PROAIR HFA8.5 GM INH (18:06)
[2017-12-03] MEDS ORDERED: BREO ELLIPTA 11 EACH INH (18:07)
[2017-12-03] MEDS ORDERED: NICOTROL10 MG INH (18:07)
[2017-12-03] MEDS ORDERED: OXYGEN NAS (18:08)
[2017-12-03] MEDS ORDERED: SPIRIVA18 MCG PO (18:08)
[2017-12-03 20:00] VITALS: BP 100/71
[2017-12-04] VITALS: BP 115/59
[2017-12-04 08:00] VITALS: BP 129/67
[2017-12-04 08:22] LABS: BASO % 0.1 % (0.0-1.0); HEMATOCRIT 46.9 % (37.0-47.0); HEMOGLOBIN 14.4 g/dl (12.0-16.0); LYMPH # 0.7 10*3/uL (1.3-4.4); LYMPH % 8.5 % (27.0-41.0); MEAN CELL VOLUME 92.7 fl (81.0-99.0); MEAN CORPUSCULAR HGB 28.5 pg (27.0-31.0); MEAN CORPUSCULAR HGB CONC 30.7 g/dl (33.0-37.0); MEAN PLATELET VOLUME 10.5 fl (9.6-12.3); MONO # 0.2 10*3/uL (0.1-1.0); MONO % 2.6 % (3.0-9.0); NEUT # 7.6 10*3/uL (2.3-7.9); NEUT % 88.6 % (47.0-73.0); PLATELET COUNT AUTOMATED 218 10*3/uL (130-400); RED BLOOD COUNT 5.06 10*6/uL (4.10-5.10); RED CELL DISTRI WIDTH 13.5 % (0-14.5); WHITE BLOOD COUNT 8.6 10*3/uL (4.8-10.8)
[2017-12-04 08:44] LABS: BUN 12 mg/dl (7-24); CHLORIDE 98 mmol/L (98-107); POTASSIUM 4.7 mmol/L (3.5-5.1); SODIUM 137 mmol/L (136-145)
[2017-12-04 08:55] LABS: CHOLESTEROL 201 mg/dL (<200); CREATININE 0.47 mg/dL (0.55-1.02); FREE T4 0.77 ng/dl (0.76-1.46); HDL CHOLESTEROL 97 mg/dl (40-60); LDL CHOLESTEROL 81 mg/dL (9-159); PHOSPHOROUS 3.9 mg/dL (2.5-4.9); THYROID STIM HORMONE (HS) 0.395 uIU/ml (0.358-4.75); TRIGLYCERIDES 117 mg/dl (<150); VLDL CHOLESTEROL 23 mg/dL (6-40)
[2017-12-04 09:00] LABS: VITAMIN D, 25-HYDROXY 20.6 ng/mL (30-100)
[2017-12-04 12:00] VITALS: BP 164/97
[2017-12-04 12:56] LABS: ABG BASE EXCESS 5.5 mmol/L (-2.0-2.0); ABG HCO3 32.1 mmol/l (22-26); ARTERIAL BLOOD GAS PCO2 55.7 mmHg (35-45); ARTERIAL BLOOD GAS PH 7.377 (7.35-7.45); ARTERIAL BLOOD GAS PO2 72.9 mmHg (80-90)
[2017-12-04 16:00] VITALS: BP 100/65
[2017-12-04 20:00] VITALS: BP 160/81
[2017-12-05] VITALS: BP 115/55
[2017-12-05 08:00] VITALS: BP 141/56
[2017-12-05 12:00] VITALS: BP 158/71
[2017-12-05 16:00] VITALS: BP 156/71
[2017-12-05 20:00] VITALS: BP 185/84
[2017-12-06] VITALS: BP 154/68
[2017-12-06 08:00] VITALS: BP 135/82
[2017-12-06 12:00] VITALS: BP 153/86
[2017-12-06] MEDS ORDERED: PREDNISONE10 MG PO (13:09)
[2017-12-06] MEDS ORDERED: ATARAX,VISTARIL50 MG PO (13:09)
[2017-12-06] MEDS ORDERED: MIRTAZAPINE15 M2 PO (13:09)
[2017-12-06] MEDS ORDERED: DOXYCYCLINE100 M3 PO (13:09)
== END 2017-12-06 14:41 | disposition home or self-care (01) | DRG 190 ==
LOC: ED 14:13 → 5E 17:04 → EDHOLD 17:04 → 5E 17:31
PROVIDERS: Internal Medicine; Internal Medicine Critical Care Medicine; Physician Assistant
DX: J44.1 Chronic obstructive pulmonary disease with (acute) exacerbation (principal); J18.9 Pneumonia, unspecified organism; E87.3 Alkalosis; E44.0 Moderate protein-calorie malnutrition; J96.11 Chronic respiratory failure with hypoxia; F33.2 Major depressive disorder, recurrent severe without psychotic features; J96.12 Chronic respiratory failure with hypercapnia; C34.2 Malignant neoplasm of middle lobe, bronchus or lung; I50.32 Chronic diastolic (congestive) heart failure; Z68.41 Body mass index [BMI] 40.0-44.9, adult; J44.0 Chronic obstructive pulmonary disease with (acute) lower respiratory infection; Z66 Do not resuscitate; Z51.5 Encounter for palliative care; I11.0 Hypertensive heart disease with heart failure; F41.1 Generalized anxiety disorder; R73.9 Hyperglycemia, unspecified; R62.7 Adult failure to thrive; E87.8 Other disorders of electrolyte and fluid balance, not elsewhere classified; Z96.641 Presence of right artificial hip joint; Z88.5 Allergy status to narcotic agent; Z88.8 Allergy status to other drugs, medicaments and biological substances; Z88.1 Allergy status to other antibiotic agents; Z91.030 Bee allergy status; Z91.041 Radiographic dye allergy status; Z79.899 Other long term (current) drug therapy; Z98.51 Tubal ligation status; Z90.49 Acquired absence of other specified parts of digestive tract; Z87.891 Personal history of nicotine dependence; Z82.49 Family history of ischemic heart disease and other diseases of the circulatory system; Z80.1 Family history of malignant neoplasm of trachea, bronchus and lung; Z99.81 Dependence on supplemental oxygen

== ENCOUNTER 2017-12-07 18:06 | Emergency (ER) | payer MEDICARE, OTHER ==
[~2017-12-07] VITALS: Wt 43.5 kg
[~2017-12-07 18:06] MED LIST changes: +ATARAX,VISTARIL50 MG PO; +ATIVAN0.5 MG PO; +MIRTAZAPINE15 M2 PO; +NICOTROL10 MG INH; +PREDNISONE5 MG PO; +RESTORIL7.5 M1 PO
== END 2017-12-07 19:11 | disposition home or self-care (01) ==
LOC: ED 18:06
DX: R60.0 Localized edema (principal); J44.1 Chronic obstructive pulmonary disease with (acute) exacerbation; R73.9 Hyperglycemia, unspecified; E78.00 Pure hypercholesterolemia, unspecified; F32.9 Major depressive disorder, single episode, unspecified; F41.1 Generalized anxiety disorder; Z91.041 Radiographic dye allergy status; Z91.030 Bee allergy status; Z88.6 Allergy status to analgesic agent; Z79.899 Other long term (current) drug therapy; Z98.51 Tubal ligation status; Z90.49 Acquired absence of other specified parts of digestive tract; Z90.89 Acquired absence of other organs

== ENCOUNTER 2018-01-22 18:26 | Inpatient (IN) | payer MEDICARE, OTHER ==
[~2018-01-22] VITALS: Ht 160 cm; Wt 43.7 kg
--- NOTE | ~2018-01-22 | EKG ---
[place], [place] ELECTROCARDIOGRAM REPORT NAME: JO ANN FONG UNIT #: [id number] ROOM: 526 DOCTOR: CUONG DRAFT REPORT BIRTHDATE: [birth year] [facility] Test Date: 2018-01-22 Test Time: 18:59:24 Pat Name: JO ANN FONG Department: Room: 526 Gender: F Display Associate: EKG.VA : 1945 Requested By: NAVNEET PICHARDO PA-C Order Number: [id number] Reading MD: Eduardo Chambers MD Measurements Intervals [place] Rate: 88 P: 76 [place]: 120 QRS: 116 QRSD: 89 T: 64 QT: 371 QTc: 449 Interpretive Statements Sinus rhythm Biatrial enlargement Right axis deviation Borderline T wave abnormalities Electronically Signed On 01-23-2018 7:49:40 PDT by Eduardo Chambers MD CM:EKGRPT:ELECTROCARDIOGRAM REPORT [id number] NAVNEET PICHARDO PA-C EPIPHANY DRAFT REPORT NAVNEET PICHARDO PA-C
[2018-01-22 18:27] VITALS: BP 131/78
[2018-01-22 19:14] LABS: BASO % 0.2 % (0.0-1.0); HEMATOCRIT 45.6 % (37.0-47.0); HEMOGLOBIN 14.8 g/dl (12.0-16.0); LYMPH % 20.5 % (27.0-41.0); MEAN CELL VOLUME 88.9 fl (81.0-99.0); MEAN CORPUSCULAR HGB 28.8 pg (27.0-31.0); MEAN CORPUSCULAR HGB CONC 32.5 g/dl (33.0-37.0); MEAN PLATELET VOLUME 9.8 fl (9.6-12.3); MONO # 0.8 10*3/uL (0.1-1.0); MONO % 7.5 % (3.0-9.0); NEUT # 7.1 10*3/uL (2.3-7.9); NEUT % 71.5 % (47.0-73.0); PLATELET COUNT AUTOMATED 295 10*3/uL (130-400); RED BLOOD COUNT 5.13 10*6/uL (4.10-5.10); RED CELL DISTRI WIDTH 15.4 % (0-14.5)
[2018-01-22 19:15] LABS: VENOUS BLOOD GAS O2 SAT 91.4 % (40-85); VENOUS PH 7.356 (7.32-7.43)
[2018-01-22 19:25] LABS: ACT PARTIAL THROMBO TIME 26.9 SECONDS (20.8-31.5)
[2018-01-22 19:32] LABS: ALBUMIN 3.8 gm/dl (3.1-4.5); ALKALINE PHOSPHATASE 73 U/L (45-117); BUN 6 mg/dl (7-24); CHLORIDE 97 mmol/L (98-107); CREATININE 0.39 mg/dL (0.55-1.02); POTASSIUM 3.7 mmol/L (3.5-5.1); SGOT/AST 10 IU/L (3-35); SGPT/ALT 15 U/L (12-78); SODIUM 138 mmol/L (136-145); TOTAL PROTEIN 7.4 gm/dL (6.4-8.2)
[2018-01-22 19:33] LABS: TROPONIN I < 0.015 ng/ml (<0.045)
[2018-01-22 20:14] LABS: BILIRUBIN NEGATIVE (NEGATIVE); BLOOD NEGATIVE (NEGATIVE); CLARITY CLEAR (CLEAR); COLOR YELLOW (YELLOW); GLUCOSE NEGATIVE (NEGATIVE); KETONE TRACE (NEGATIVE); LEUKO ESTERASE NEGATIVE (NEGATIVE); NITRITE NEGATIVE (NEGATIVE); SPECIFIC GRAVITY <= 1.005 (1.005-1.030); UROBILINOGEN 0.2 E.U./dl (0.2-1.0)
[2018-01-22 20:23] LABS: BACTERIA TRACE; EPITHELIAL CELLS 20-25; WBC 0-2 wbc/hpf (0-5); YEAST TRACE
[2018-01-22] MEDS ORDERED: EFFEXOR XR150 M1 PO (21:31)
[2018-01-22 22:00] VITALS: BP 129/87
[2018-01-23] VITALS: BP 125/71
[2018-01-23 01:56] LABS: HEMATOCRIT 45.3 % (37.0-47.0); HEMOGLOBIN 14.4 g/dl (12.0-16.0); MEAN CELL VOLUME 89.2 fl (81.0-99.0); MEAN CORPUSCULAR HGB 28.3 pg (27.0-31.0); MEAN CORPUSCULAR HGB CONC 31.8 g/dl (33.0-37.0); MEAN PLATELET VOLUME 9.6 fl (9.6-12.3); PLATELET COUNT AUTOMATED 276 10*3/uL (130-400); RED BLOOD COUNT 5.08 10*6/uL (4.10-5.10); RED CELL DISTRI WIDTH 15.3 % (0-14.5); WHITE BLOOD COUNT 10.1 10*3/uL (4.8-10.8)
[2018-01-23 02:12] LABS: ALBUMIN 3.6 gm/dl (3.1-4.5); ALKALINE PHOSPHATASE 70 U/L (45-117); BUN 8 mg/dl (7-24); CHLORIDE 98 mmol/L (98-107); CREATININE 0.43 mg/dL (0.55-1.02); PHOSPHOROUS 3.6 mg/dL (2.5-4.9); POTASSIUM 3.6 mmol/L (3.5-5.1); SGOT/AST 14 IU/L (3-35); SGPT/ALT 16 U/L (12-78); SODIUM 139 mmol/L (136-145); TOTAL PROTEIN 7.1 gm/dL (6.4-8.2)
[2018-01-23 02:16] LABS: PLATELET SUFFICIENCY NORMAL (NORMAL); TOTAL CELLS COUNTED 100 #CELLS
[2018-01-23 08:00] VITALS: BP 138/77
[2018-01-23 12:00] VITALS: BP 152/67
[2018-01-23 16:00] VITALS: BP 143/62
[2018-01-23 20:00] VITALS: BP 115/65
[2018-01-24] VITALS: BP 156/56
[2018-01-24 08:00] VITALS: BP 106/55
[2018-01-24 12:00] VITALS: BP 113/63
[2018-01-24 16:00] VITALS: BP 129/58
[2018-01-24 20:00] VITALS: BP 145/68
[2018-01-25] VITALS: BP 145/90
[2018-01-25 08:49] VITALS: BP 118/72
[2018-01-25 12:00] VITALS: BP 126/81
[2018-01-25 16:00] VITALS: BP 128/81
[2018-01-25 20:00] VITALS: BP 130/56
[2018-01-25 20:14] VITALS: BP 127/68
[2018-01-26] VITALS: BP 106/75
[2018-01-26 06:27] LABS: BASO % 0.1 % (0.0-1.0); HEMATOCRIT 45.8 % (37.0-47.0); HEMOGLOBIN 14.4 g/dl (12.0-16.0); LYMPH % 21.5 % (27.0-41.0); MEAN CELL VOLUME 90.3 fl (81.0-99.0); MEAN CORPUSCULAR HGB 28.4 pg (27.0-31.0); MEAN CORPUSCULAR HGB CONC 31.4 g/dl (33.0-37.0); MEAN PLATELET VOLUME 10.2 fl (9.6-12.3); MONO # 0.7 10*3/uL (0.1-1.0); MONO % 7.5 % (3.0-9.0); NEUT # 6.4 10*3/uL (2.3-7.9); NEUT % 70.6 % (47.0-73.0); PLATELET COUNT AUTOMATED 245 10*3/uL (130-400); RED BLOOD COUNT 5.07 10*6/uL (4.10-5.10); RED CELL DISTRI WIDTH 15.5 % (0-14.5); WHITE BLOOD COUNT 9.1 10*3/uL (4.8-10.8)
[2018-01-26 06:38] LABS: CREATININE 0.43 mg/dL (0.55-1.02)
[2018-01-26] MEDS ORDERED: MECLIZINE HCL25 M2 PO (10:49)
== END 2018-01-26 11:45 | disposition home health service (06) | DRG 191 ==
LOC: ED 18:26 → 5E 20:55 → EDHOLD 20:55 → 5E 21:06
PROVIDERS: Internal Medicine; Physician Assistant
DX: J44.1 Chronic obstructive pulmonary disease with (acute) exacerbation (principal); E87.3 Alkalosis; J96.11 Chronic respiratory failure with hypoxia; C34.91 Malignant neoplasm of unspecified part of right bronchus or lung; J96.12 Chronic respiratory failure with hypercapnia; I50.32 Chronic diastolic (congestive) heart failure; F33.9 Major depressive disorder, recurrent, unspecified; D72.810 Lymphocytopenia; Z68.1 Body mass index [BMI] 19.9 or less, adult; I95.1 Orthostatic hypotension; H81.10 Benign paroxysmal vertigo, unspecified ear; R73.9 Hyperglycemia, unspecified; R62.7 Adult failure to thrive; R73.03 Prediabetes; F41.1 Generalized anxiety disorder; R63.6 Underweight; Z88.6 Allergy status to analgesic agent; Z99.81 Dependence on supplemental oxygen; Z88.8 Allergy status to other drugs, medicaments and biological substances; Z91.030 Bee allergy status; Z91.041 Radiographic dye allergy status; Z98.51 Tubal ligation status; Z90.89 Acquired absence of other organs; Z90.49 Acquired absence of other specified parts of digestive tract; Z87.891 Personal history of nicotine dependence; Z82.49 Family history of ischemic heart disease and other diseases of the circulatory system; Z80.1 Family history of malignant neoplasm of trachea, bronchus and lung; Z84.89 Family history of other specified conditions; Z79.899 Other long term (current) drug therapy

== ENCOUNTER 2018-02-23 01:25 | Emergency (ER) | payer MEDICARE, OTHER ==
[~2018-02-23] VITALS: Ht 160 cm; Wt 43.5 kg
--- NOTE | ~2018-02-23 | EKG ---
[place], [place] ELECTROCARDIOGRAM REPORT NAME: JO ANN FONG UNIT #: [id number] ROOM: DOCTOR: EPIPHANY DRAFT REPORT BIRTHDATE: [birth year] [facility] Test Date: 2018-02-23 Test Time: 02:02:13 Pat Name: JO ANN FONG Department: ER Room: 4 Gender: F Personnel Coordinator: : 1945 Requested By: MEGAN VELASQUEZ Order Number: [id number] Reading MD: Yair Mcdaniels MD Measurements Intervals [place] Rate: 98 P: [place]: QRS: 64 QRSD: 199 T: 57 QT: 469 QTc: 600 Interpretive Statements Atrial fibrillation Nonspecific intraventricular conduction delay Anteroseptal infarct, old Electronically Signed On 03-01-2018 11:43:34 PDT by Yair Mcdaniels MD CM:EKGRPT:ELECTROCARDIOGRAM REPORT [id number] MEGAN PARIKH DRAFT REPORT MEGAN VELASQUEZ DO
[~2018-02-23 01:25] MED LIST changes: +VITAMIN D-32000 UNIT PO
[2018-02-23 02:26] LABS: HEMATOCRIT 48.2 % (37.0-47.0); MEAN CELL VOLUME 93.1 fl (81.0-99.0); MEAN CORPUSCULAR HGB CONC 31.1 g/dl (33.0-37.0); MEAN PLATELET VOLUME 10.3 fl (9.6-12.3); PLATELET COUNT AUTOMATED 220 10*3/uL (130-400); RED BLOOD COUNT 5.18 10*6/uL (4.10-5.10); RED CELL DISTRI WIDTH 15.5 % (0-14.5); WHITE BLOOD COUNT 17.6 10*3/uL (4.8-10.8)
[2018-02-23 02:34] LABS: BILIRUBIN NEGATIVE (NEGATIVE); BLOOD NEGATIVE (NEGATIVE); CLARITY CLOUDY (CLEAR); COLOR YELLOW (YELLOW); GLUCOSE NEGATIVE (NEGATIVE); KETONE TRACE (NEGATIVE); LEUKO ESTERASE TRACE (NEGATIVE); NITRITE NEGATIVE (NEGATIVE); PH 6.5 (5.0-9.0); SPECIFIC GRAVITY 1.015 (1.005-1.030)
[2018-02-23 02:38] LABS: INTERNATIONAL NORM RATIO 0.9 (2.0-3.5)
[2018-02-23 02:43] LABS: BACTERIA 4+
[2018-02-23 02:45] LABS: ALBUMIN 3.5 gm/dl (3.1-4.5); ALKALINE PHOSPHATASE 69 U/L (45-117); BUN 14 mg/dl (7-24); CHLORIDE 92 mmol/L (98-107); CREATININE 0.43 mg/dL (0.55-1.02); POTASSIUM 3.9 mmol/L (3.5-5.1); SGOT/AST 14 IU/L (3-35); SGPT/ALT 34 U/L (12-78); SODIUM 135 mmol/L (136-145); TOTAL PROTEIN 6.8 gm/dL (6.4-8.2)
[2018-02-23 02:47] LABS: PLATELET SUFFICIENCY NORMAL (NORMAL); TOTAL CELLS COUNTED 100 #CELLS
[2018-02-23 02:48] LABS: TROPONIN I < 0.015 ng/ml (<0.045)
[2018-03-12] MEDS ORDERED: TYLENOL325 M2 PO (08:32)
[2018-03-12] MEDS ORDERED: ATIVAN0.5 MG PO (08:33)
== END 2018-02-23 08:20 | disposition home or self-care (01) ==
LOC: ED 01:25
PROVIDERS: Emergency Medicine
DX: J44.9 Chronic obstructive pulmonary disease, unspecified (principal); F41.0 Panic disorder [episodic paroxysmal anxiety]; I50.32 Chronic diastolic (congestive) heart failure; Z95.1 Presence of aortocoronary bypass graft; Z88.1 Allergy status to other antibiotic agents; Z88.6 Allergy status to analgesic agent; Z91.041 Radiographic dye allergy status; Z79.899 Other long term (current) drug therapy; Z85.118 Personal history of other malignant neoplasm of bronchus and lung; Z98.51 Tubal ligation status; Z90.49 Acquired absence of other specified parts of digestive tract; Z90.89 Acquired absence of other organs; Z87.891 Personal history of nicotine dependence

== ENCOUNTER 2018-03-03 11:48 | Inpatient (IN) | payer MEDICARE, OTHER ==
[2018-03-03] VITALS (22 sets, daily range): BP systolic 85–122; BP diastolic 48–93
[~2018-03-03] VITALS: Ht 162.5 cm; Wt 42.0 kg
--- NOTE | ~2018-03-03 | PR ---
[place], [place] PROGRESS NOTE NAME: JO ANN FONG UNIT #: [id number] ROOM: 529 DOCTOR: JEANCARLOS LEO MD,AMISH BIRTHDATE: [birth year] DOS: 03/08/2018 PULMONARY PROGRESS NOTE SUBJECTIVE: The patient is noted comfortable at this time, lying in the bed, awake with vocal commands but noted to be more sleepy and stating that she is tired. Refused to use BiPAP. Coughing has been noted intermittent with sputum expectoration. Sputum culture, which was sent, was noted gram-negative rods. The patient is placed in isolation with pending identification and sensitivities. Denies abdominal pain, nausea, vomiting or diarrhea. Denies any symptoms of hematemesis, melena or headache. General weakness and fatigue were reported. Rest of the systems reviewed, they were noted all negative. OBJECTIVE: VITAL SIGNS: Normal temperature, respiratory rate 20, heart rate 83, blood pressure 150/54 this morning, pulse ox saturation on 4 liters 97-100% saturation. HEENT: Shows head was atraumatic, eyes nonicterus. NECK: Supple. CARDIOVASCULAR: S1 and S2 audible. LUNGS: Moderate decreased breath sounds noted in the lungs bilaterally. ABDOMEN: Soft, nontender. EXTREMITIES: The patient was noted without any acute edema. MUSCULOSKELETAL: The patient was noted without any acute deformities. CENTRAL NERVOUS SYSTEM: The patient with somewhat fatigue noted, but there were no focal deficits. MUSCULOSKELETAL: Noted without any acute deformities. SKIN: No lesions or rashes. LABORATORY DATA: Culture of the sputum from 03/06/2018 shows moderate growth of gram-negative rods, pending identification and sensitivity. CBC today was noted essentially normal. BMP done this morning was noted normal BUN and creatinine, CO2 36, which was noted controlled. Blood culture from 03/03/2018 showed no bacterial growth on final results. Vancomycin trough level was noted 17, which is therapeutic. IMPRESSION: 1. The patient has been currently treated for acute on chronic hypercapnic hypoxic respiratory failure, refusing certain therapy at this time. Acute pneumonia on the right lower lobe was also noted secondary to gram-negative rods, currently receiving meropenem. 2. The patient with history of lung cancer, which is not treated as well. 3. Chronic nicotine dependence and protein calorie malnutrition status as well. Prealbumin level noted at 13 today. PLAN OF MANAGEMENT: Continue oxygen supplementation, bronchodilators, and antibiotic adjustment with the antibiotic based on the culture results. Monitor chest x-ray intermittently. Possible consideration for hospice care to be [place], [place] PROGRESS NOTE NAME: JO ANN FONG UNIT #: [id number] ROOM: 529 DOCTOR: JEANCARLOS LEO MD,AMISH BIRTHDATE: [birth year] assessed for the patient with end-stage COPD and refusal of further treatment. In the meantime, continue maximizing medical management. Antibiotic de-escalation based on the final culture results of the sputum that will be done. AMISH ARSHAD MD CM:PNTRANS [phone] AMISH LEO MD 03/09/18 0407 interface
--- NOTE | ~2018-03-03 | EKG ---
[place], [place] ELECTROCARDIOGRAM REPORT NAME: JO ANN FONG UNIT #: [id number] ROOM: 529 DOCTOR: CUONG DRAFT REPORT BIRTHDATE: [birth year] [facility] Test Date: 2018-03-06 Test Time: 17:31:22 Pat Name: JO ANN FONG Department: Room: 529 Gender: F High School Coach: Alfonso Perez : 1945 Requested By: JENNIFER LABOY Order Number: [id number] Reading MD: Kevon Morrow MD Measurements Intervals [place] Rate: 80 P: [place]: QRS: -74 QRSD: 112 T: 244 QT: 500 QTc: 577 Interpretive Statements Atrial flutter with predominant 4:1 AV block LAD, consider left anterior fascicular block Low voltage, extremity leads Nonspecific T abnormalities, lateral leads Prolonged QT interval Compared to ECG 03/03/2018 15:18:17 AV block, advanced (high-grade) now present Low QRS voltage now present T-wave abnormality now present Sinus pause or arrest no longer present Myocardial infarct finding no longer present Electronically Signed On 03-09-2018 9:35:04 PDT by Kveon Morrow MD CM:EKGRPT:ELECTROCARDIOGRAM REPORT [id number] JENNIFER LABOY EPIPHANY DRAFT REPORT JENNIFER LABOY
--- NOTE | ~2018-03-03 | PR ---
[place], [place] PROGRESS NOTE NAME: JO ANN FONG UNIT #: [id number] ROOM: 529 DOCTOR: JANICE ANGELES DO BIRTHDATE: [birth year] DOS: 03/10/2018 SUBJECTIVE: The patient was seen and examined at the bedside. She endorses numerous complaints today including shortness of breath and hemoptysis. She states that she wants to go home, and alternatingly, she also states that she wants to speak with her son. Reportedly, overnight, the patient complained of shortness of breath and was verbally abusive to the nursing staff. The patient is currently also endorses nausea, but denies fevers, chills or chest pain. OBJECTIVE: VITAL SIGNS: Include temperature at 98.7, heart rate 82, respiratory rate 16. The last blood pressure recorded was at 124/66 and current pulse ox is 96% on 3 liters nasal cannula. GENERAL APPEARANCE: The patient was noted to be alert, awake, in no acute distress and responsive. She does appear thin and cachectic. HEENT: Her head is normocephalic and atraumatic. Eyes are without lesions or ulcerations. NECK: Trachea is midline. PULMONARY: Lungs are noted to be diminished, but overall clear to auscultation bilaterally. HEART: Heart rate was regular. Rhythm was regular. No gallops, rubs, or murmurs were appreciated and S1, S2 sounds were heard. ABDOMEN: Soft, nontender, nondistended with positive bowel sounds. EXTREMITIES: Without clubbing, cyanosis, erythema or edema. IMPRESSION: 1. Stenotrophomonas maltophilia pneumonia sensitive to Levaquin and Bactrim and resistant to ceftazidime. 2. Acute on chronic hypercapnic and hypoxic respiratory failure. 3. Urinary tract infection with heavy growth of Proteus mirabilis resistant to Macrobid and tetracycline. 4. Atrial flutter. 5. Coronary artery disease. 6. Non-small cell lung cancer. 7. Underweight. 8. Tobacco abuse. 9. Noncompliance with medical therapy. PLAN OF MANAGEMENT: No changes are advised from a pulmonary standpoint at this point. The patient is already on Bactrim, which covers the organisms grown in her sputum and urine cultures. Continue with bronchodilator therapy. This patient is stable for discharge from a pulmonary point of view. Given this patient's history of end-stage chronic obstructive pulmonary disease, her history of untreated lung cancer and her medical noncompliance thus far, it is advisable that hospice care be considered. Janice Angeles DO [place], [place] PROGRESS NOTE NAME: JO ANN FONG UNIT #: [id number] ROOM: 529 DOCTOR: JANICE ANGELES DO BIRTHDATE: [birth year] AMISH ARSHAD MD CM:PNTRANS 1121 21 JANICE ANGELES DO 03/10/182219 interface
--- NOTE | ~2018-03-03 | PR ---
[place], [place] PROGRESS NOTE [id number] #: [id number] ROOM: 529 DOCTOR: JEANCARLOS LEO MD,AMISH BIRTHDATE: [birth year] DOS: 03/10/2018 PULMONARY PROGRESS ADDENDUM NOTE SUBJECTIVE: The patient was independently seen and examined in [id number] encounter. History was confirmed. Physical examination performed. Labs were reviewed. The patient's assessment and management was personally completed on today's visit. The note done by the medical billing service was approved She has been noted reduction in symptoms of shortness of breath. She has noted more awake and alert yesterday, started on the therapy for the Stenotrophomonas maltophilia pneumonia with Bactrim. The other antibiotics were discontinued. The patient refused the BiPAP using oxygen supplementation, noted awake. OBJECTIVE: VITAL SIGNS: Reviewed and they were noted all normal. The pulse oxygen saturation maintained as 96% on 3 liters cannula. LUNGS: Noted clear. ABDOMEN: Soft. Bowel sounds are present. EXTREMITIES: No edema. IMPRESSION: Stenotrophomonas maltophilia pneumonia with acute on chronic hypercapnic and hypoxic respiratory failure with exacerbation of chronic obstructive pulmonary disease. PLAN OF MANAGEMENT: No changes from the pulmonary standpoint. Continuation of the current therapy as in progress with the antibiotics and bronchodilator. Discharge planning for the patient could be started by the primary care attending. Possible consideration should be given with the hospice care. AMISH ARSHAD MD CM:PNTRANS [id number] [id number] AMISH LEO MD 03/10/18 1010 interface
--- NOTE | ~2018-03-03 | PR ---
[place], [place] PROGRESS NOTE NAME: JO ANN FONG UNIT #: [id number] ROOM: 529 DOCTOR: JEANCARLOS LEO MD,AMISH BIRTHDATE: [birth year] DOS: 03/11/2018 SUBJECTIVE: She was independently examined. History was taken. The labs were reviewed. Assessment and management personally completed. The patient's note done by the medical service representative was approved as well. She has been noted comfortable at this time, resting on the bed. The cough has been noted mild. Continued on the Bactrim sulfate for this patient as an antibiotic for the acute pneumonia. PHYSICAL EXAMINATION: VITAL SIGNS: For the patient which has been recorded showed normal temperature, respiratory rate 17, heart rate 80, blood pressure 122/67. The pulse ox saturation on 4 liters nasal cannula maintained at 95% saturation. LUNGS: The patient was noted without any wheezing or crackles. ABDOMEN: Soft and nontender. Bowel sounds present. EXTREMITIES: No edema. IMPRESSION: 1. Acute Stenotrophomonas maltophilia pneumonia, right lower lobe with resolving acute on chronic hypercapnic hypoxic respiratory failure. 2. History of lung cancer. PLAN OF THERAPY: No changes in the plan for this patient at this time needs to be done. Awaiting for the patient for placement in [facility] for further continued therapy. AMISH ARSHAD MD CM:PNTRANS [phone] AMISH LEO MD 03/11/18 1758 interface
--- NOTE | ~2018-03-03 | PR ---
[place], [place] PROGRESS NOTE NAME: JO ANN FONG UNIT #: [id number] ROOM: 529 DOCTOR: JEANCARLOS LEO MD,AMISH BIRTHDATE: [birth year] DOS: 03/09/2018 SUBJECTIVE: The patient was continued with current antibiotics and noted still weak and fatigued. Refused to use a BiPAP and multiple other treatments and was continued on antibiotics. Cough is noted with some sputum expectoration. OBJECTIVE: VITAL SIGNS: Normal temperature, respiratory rate 16, heart rate 62 and blood pressure 105/49. Pulse oxygen saturation on 2 liters nasal cannula 97% saturation. HEENT: Examination shows head was atraumatic. Eyes nonicterus. CARDIOVASCULAR: S1, S2 is audible. LUNGS: The patient noted to have scattered. Wheezing of the lungs. Occasional crackles in the lung bases bilaterally. ABDOMEN: Soft and nontender. Bowel sounds present. EXTREMITIES: The patient noted without any acute edema. LABORATORY DATA: Culture of the sputum became available noted with findings of Stenotrophomonas maltophilia. Drug of choice for the patient would be Bactrim. IMPRESSION: 1. Acute pneumonia with Stenotrophomonas maltophilia. 2. Resolving acute exacerbation of chronic obstructive pulmonary disease. 3. Atrial fibrillation. PLAN OF MANAGEMENT: Discontinuation of the vancomycin and meropenem. Start the patient on Bactrim twice a day for the medical management of current acute pneumonia with Stenotrophomonas maltophilia. Discharge planning could be started. Possible consideration should be given to the hospice care because of patient refusal for treatment for multiple ongoing medical problems and continued tobacco use. AMISH ARSHAD MD CM:PNTRANS [id number] AMISH LEO MD 03/09/18 1033 interface
--- NOTE | ~2018-03-03 | EKG ---
[place], [place] ELECTROCARDIOGRAM REPORT NAME: JO ANN FONG UNIT #: [id number] ROOM: [facility] DOCTOR: CUONG DRAFT REPORT BIRTHDATE: [birth year] [facility] [place] [facility] Test Date: 2018-03-03 Test Time: 12:40:23 Pat Name: JO ANN FONG Department: Room: [facility] Gender: F Vp Product: : 1945 Requested By: GREG BARRON Order Number: [id number] Reading MD: Rafaela Tran MD Measurements Intervals [place] Rate: 168 P: 0 [place]: QRS: 251 QRSD: 134 T: 268 QT: 315 QTc: 527 Interpretive Statements Atrial flutter with 2:1 block Nonspecific IVCD with LAD Compared to ECG 02/23/2018 02:02:13 Atrial fibrillation no longer present Myocardial infarct finding no longer present Electronically Signed On 03-04-2018 13:41:19 PDT by Rafaela Tran MD CM:EKGRPT:ELECTROCARDIOGRAM REPORT [id number] GREG BARRON MD EPIPHANY DRAFT REPORT GREG BARRON MD
--- NOTE | ~2018-03-03 | PR ---
[place], [place] PROGRESS NOTE NAME: JO ANN FONG UNIT #: [id number] ROOM: 529 DOCTOR: JANICE ANGELES DO BIRTHDATE: [birth year] DOS: 03/11/2018 SUBJECTIVE: The patient was seen and examined at the bedside. The patient still complains of shortness of breath as well as anxiety. She states that she wants to be discharged, but she is anxious about what the discharge plan is going to be. OBJECTIVE: VITAL SIGNS: Temperature at 97.7, heart rate at 80, respiratory rate at 17, blood pressure at 122/67 and pulse ox is 95% on 4 liters nasal cannula. GENERAL APPEARANCE: She was alert, awake, cooperative, responsive and in no apparent distress. She is a thin, elderly and cachectic looking female. HEENT: The head is normocephalic and atraumatic. The eyes are without lesions or ulcerations. NECK: Trachea is midline. PULMONARY: Breath sounds are noted to be diminished and there was expiratory wheezing appreciable on exam. CARDIOVASCULAR: Regular rate and rhythm was appreciated. There were no murmurs, gallops or rubs. Positive S1 and S2 sounds were heard. ABDOMEN: Soft, nontender to palpation. It was nondistended and positive bowel sounds were heard. EXTREMITIES: They were noted to be without clubbing, cyanosis, erythema or edema. PSYCHOLOGICAL EVALUATION: The patient was noted to be anxious. LABORATORY DATA: Today, CBC shows white count at 7.2, hemoglobin at 10.6, hematocrit at 33.1, platelets at 234. Today's chemistry shows sodium at 139, potassium at 3.5, chloride at 101, bicarbonate at 30, BUN at 14, creatinine at 0.32, glucose at 105, calcium at 9.8. IMPRESSION: 1. Stenotrophomonas maltophilia pneumonia with sensitivities to Levaquin and Bactrim. 2. Acute on chronic hypercapnic and hypoxic respiratory failure. 3. Urinary tract infection with growth of Proteus mirabilis with noted sensitivities. 4. Atrial flutter. 5. Coronary artery disease. 6. Non-small cell lung cancer. 7. Underweight. 8. Tobacco abuse. 9. Noncompliance with medical therapy. PLAN OF MANAGEMENT: From a pulmonary standpoint, no changes are advised. The patient's sputum and urine cultures are sensitive to the Bactrim, which she is currently on. The patient remains on bronchodilator therapy. She remains stable for discharge from a Pulmonary standpoint. [place], [place] PROGRESS NOTE NAME: HETALJO ANN UNIT #: [id number] ROOM: 529 DOCTOR: JANICE ANGELES DO BIRTHDATE: [birth year] Janice Angeles DO AMISH ARSHAD MD CM:ABIGAIL [id number] JANICE ANGELES DO 03/11/18 1115 interface
--- NOTE | ~2018-03-03 | CON ---
[place], [place] REPORT OF CONSULTATION NAME: JO ANN FONG UNIT #: [id number] ROOM: [facility] [place] DOCTOR: AMISH ALMARAZ MD BIRTHDATE: [birth year] DOS: 03/07/2018 CONSULTATION REQUESTED BY: Hospitalist service. REASON FOR CONSULTATION: Respiratory failure with change in mental status. 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 The patient has been admitted to the hospital under care of the hospitalist service from the date of 03/03/2018. She has been treated for the symptoms reported for increased shortness of breath, feeling shaky at home, weakness with general fatigue. She was also noted with the symptoms of cough as well. The patient has been admitted to the hospital, treated for deformities including COPD exacerbation. Yesterday, the patient noted worsening of the mental status and other problems. The patient had arterial blood gas done, which showed severe hypoxemia with hypercapnia. This morning, the patient was still noted drowsy and sleepy. She has been ordered the BiPAP yesterday ____ intensive care unit, which has refused by the patient. She had decided no intubation as well as code status per nursing staff. This morning it was noted she was arousable to vocal commands, but does not answer much questions. Further history could not be obtained from the patient. The review of system of this patient cannot be effectively completed because of current changes in the mental status. PAST MEDICAL HISTORY, SURGICAL HISTORY, SOCIAL HISTORY, AND FAMILY HISTORY: All documented from my consultation 02/17/2018, remains unchanged. Refer to that document for any information as needed. CURRENT MEDICATIONS: Administered noted use of digoxin, aspirin, guaifenesin, nicotine replacement patches, Xarelto 20 mg daily, Diamox, albuterol sulfate, vitamin D, Cardizem, meclizine, intravenous vancomycin, meropenem and others. DRUG ALLERGIES: 1. THE PATIENT NOTED ALLERGY TO THE IVP DYE. 2. CODEINE PHOSPHATE. 3. KEFLEX. 4. LEVAQUIN. PHYSICAL EXAMINATION: GENERAL: A 72-year-old female currently noted to be lying in the bed without any acute distress and oxygen supplementation with nasal cannula. Height of 5 feet 4 inches, weight of 92 pounds. The patient's BMI Is 15.9. VITAL SIGNS: Which has been noted as a temperature max of 99.3 ____ normal temperature in the last 24 hours, respiratory 16-18 ____ 18 on admission, with atrial fibrillation, rapid ventricular response with heart rate noted up to 126 beats per minute. Currently, the patient's heart rate noted in normal range less than 100. Blood pressure ranges between 126/54-129/63. Pulse oxygen saturation on 4 liters 94% saturation. HEAD, EYES, EARS, NOSE, AND THROAT: Limited exam without any abnormal finding. [place], [place] REPORT OF CONSULTATION NAME: JO ANN FONG UNIT #: [id number] ROOM: [facility] [place] DOCTOR: AMISH ALMARAZ MD BIRTHDATE: [birth year] Head was atraumatic. Eyes nonicterus. CARDIOVASCULAR: S1, S2 is audible. LUNGS: Noted with general decreased breath sounds, scattered wheezing. No crackle mostly at the lung bases. ABDOMEN: Flat, soft, nontender. EXTREMITIES: Loss of muscle mass without any edema. MUSCULOSKELETAL: Without acute deformities. CENTRAL NERVOUS SYSTEM: Change in mental status. LABORATORY DATA: Arterial blood gas yesterday on 100% nonrebreather mask, pH of 7.27, pCO2 of 83, pO2 72. The urine culture noted heavy growth of Proteus mirabilis more than 100,000 colony forming units, sensitive to multiple antibiotics. Troponin noted as 0.70 yesterday for ____ and the T-max noted as 0.72 with additional 2 sets. The electrocardiogram was noted with findings of a left anterior fascicular block and atrial flutter with nonspecific ST-T changes. AV block was also reported. CBC today: WBC count 9.7, hemoglobin 11.5, hematocrit 37.8, platelet count was normal. BMP this morning, BUN normal, creatinine normal, glucose 125. Culture of the sputum from yesterday was pending. The Gram stain of 914, many white blood cell, few gram-positive cocci in pairs and clusters. Review of the radiology data: The chest x-ray that were reviewed on 03/05/2018, acute infiltration was noted in the right lower lobe consolidation and small linear area of atelectasis noted in the left mid lung. Changes of COPD, was present. IMPRESSION: 1. The patient has developed acute pneumonia in the right lower lobe with acute hypoxic and hypercapnic respiratory failure. ____ community-acquired pneumonia with high risk for gram-positive and gram-negative infection. Aspiration could be a possibility hypercapnia and changes in mental status. 2. Nonadherence with the medical therapy. The patient refused to further assess and manage for lung cancer, clearly known patient diagnosed approximately a year ago or less. 3. End-stage chronic obstructive pulmonary disease with acute exacerbation as well. 4. Atrial fibrillation/rapid ventricular response, currently treated with medical management. 5. Chronic hypercarbia was also noted because of the advanced CO2 retention. 6. Current urinary tract infection. 7. Acute sepsis. The patient will be also contributing current change in mental status as well. 8. Severe cachexia. PLAN OF MANAGEMENT: The patient has been getting the antibiotic coverage for gram-positive, gram-negative organism, should give good coverage for the current suspected pneumonia management. Order another chest x-ray since the last chest x-ray done couple of days to be addressed. The code status has been already change. No intubation. BiPAP support was ordered, but refused by the patient. Aspiration precautions. Avoid feeding, with mental status changes. The patient was also noted severe protein-calorie malnutrition and cachexia related to COPD and possible underlying malignancy. Severe cachexia, which are noted [place], [place] REPORT OF CONSULTATION NAME: JO ANN FONG UNIT #: [id number] ROOM: [facility] [place] DOCTOR: JEANCARLOS LEO MD,AMISH BIRTHDATE: [birth year] progressive and weight loss, multifactorial. The prealbumin level will be obtained in the morning to assess the nutritional status. Usual care. Further change in treatment recommendations to be based on the discussion with the family members about and the patient predetermined code status as well. Overall prognosis remains quite guarded at this time. She has been noted with intermittent tobacco use per son, that has been currently treated with the nicotine replacement patch to overcome nicotine withdrawal. Thanks for allowing me to participate in the care of this patient. AMISH ARSHAD MD CM:CONSTR:REPORT OF CONSULTATION [id number] 03/07/18 1659 interface
--- NOTE | ~2018-03-03 | EKG ---
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1945 Requested By: JENNIFER LABOY Order Number: [id number] Reading MD: Rafaela Tran MD Measurements Intervals [place] Rate: 135 P: [place]: QRS: 87 QRSD: 110 T: 80 QT: 383 QTc: 575 Interpretive Statements Atrial flutter Sinus pause Probable left ventricular hypertrophy Inferior infarct, acute (LCx) Prolonged QT interval Compared to ECG 02/23/2018 02:02:13 Sinus pause or arrest now present Prolonged QT interval now present Atrial fibrillation no longer present Intraventricular conduction delay no longer present Myocardial infarct finding still present Electronically Signed On 03-04-2018 13:41:58 PDT by Rafaela Tran MD CM:EKGRPT:ELECTROCARDIOGRAM REPORT [id number] JENNIFER LABOY EPIPHANY DRAFT REPORT JENNIFER LABOY
[2018-03-03 12:22] LABS: BASO % 0.1 % (0.0-1.0); EOS % 0.1 % (1.0-4.0); HEMATOCRIT 45.4 % (37.0-47.0); HEMOGLOBIN 14.8 g/dl (12.0-16.0); LYMPH # 1.6 10*3/uL (1.3-4.4); LYMPH % 9.5 % (27.0-41.0); MEAN CELL VOLUME 90.8 fl (81.0-99.0); MEAN CORPUSCULAR HGB 29.6 pg (27.0-31.0); MEAN CORPUSCULAR HGB CONC 32.6 g/dl (33.0-37.0); MEAN PLATELET VOLUME 9.8 fl (9.6-12.3); MONO # 0.9 10*3/uL (0.1-1.0); MONO % 5.4 % (3.0-9.0); NEUT # 14.4 10*3/uL (2.3-7.9); NEUT % 84.4 % (47.0-73.0); PLATELET COUNT AUTOMATED 349 10*3/uL (130-400); RED CELL DISTRI WIDTH 15.4 % (0-14.5)
[2018-03-03 12:31] LABS: ACT PARTIAL THROMBO TIME 24.8 SECONDS (20.8-31.5)
[2018-03-03 12:39] LABS: ALBUMIN 3.5 gm/dl (3.1-4.5); ALKALINE PHOSPHATASE 71 U/L (45-117); BUN 13 mg/dl (7-24); CHLORIDE 92 mmol/L (98-107); CREATININE 0.34 mg/dL (0.55-1.02); POTASSIUM 3.9 mmol/L (3.5-5.1); SGOT/AST 14 IU/L (3-35); SGPT/ALT 19 U/L (12-78); SODIUM 135 mmol/L (136-145); TOTAL PROTEIN 6.5 gm/dL (6.4-8.2)
[2018-03-03 12:43] LABS: TROPONIN I 0.197 ng/ml (<0.045)
[2018-03-03] MEDS ORDERED: MEDI-MECLIZINE25 MG PO (15:52)
[2018-03-03] MEDS ORDERED: GOOD NEIGHBOR M25 MG PO (15:53)
[2018-03-03 18:27] LABS: BILIRUBIN NEGATIVE (NEGATIVE); BLOOD NEGATIVE (NEGATIVE); CLARITY SL CLOUDY (CLEAR); COLOR YELLOW (YELLOW); GLUCOSE TRACE (NEGATIVE); KETONE NEGATIVE (NEGATIVE); LEUKO ESTERASE 1+ (NEGATIVE); NITRITE NEGATIVE (NEGATIVE); PH 6.5 (5.0-9.0)
[2018-03-03 18:35] LABS: BACTERIA 1+
[2018-03-03 18:42] LABS: URINE AMPHETAMINES < 1000 (1000ng/ml); URINE BARBITURATES < 200 (200ng/ml); URINE BENZODIAZEPINES > 200 (200ng/ml); URINE CANNABINOIDS (THC) > 50 (50ng/ml); URINE COCAINE < 300 (300ng/ml); URINE METHADONE < 300 (300ng/ml); URINE OPIATES < 300 (300ng/ml)
[2018-03-03 18:44] LABS: URINE PHENCYCLIDINE < 25 (25ng/ml)
[2018-03-04] VITALS: BP 102/55
[2018-03-04 04:00] VITALS: BP 116/66
[2018-03-04 05:58] LABS: BUN 8 mg/dl (7-24); CHLORIDE 100 mmol/L (98-107); CREATININE 0.25 mg/dL (0.55-1.02); POTASSIUM 3.7 mmol/L (3.5-5.1); SODIUM 139 mmol/L (136-145)
[2018-03-04 06:02] LABS: CHOLESTEROL 131 mg/dL (<200); FREE T4 0.93 ng/dl (0.76-1.46); HDL CHOLESTEROL 54 mg/dl (40-60); LDL CHOLESTEROL 55 mg/dL (9-159); PHOSPHOROUS 3.7 mg/dL (2.5-4.9); TRIGLYCERIDES 109 mg/dl (<150); VLDL CHOLESTEROL 22 mg/dL (6-40)
[2018-03-04 06:09] LABS: THYROID STIM HORMONE (HS) 0.806 uIU/ml (0.358-4.75)
[2018-03-04 06:22] LABS: BASO % 0.1 % (0.0-1.0); EOS % 0.1 % (1.0-4.0); LYMPH # 1.9 10*3/uL (1.3-4.4); LYMPH % 16.8 % (27.0-41.0); MEAN CORPUSCULAR HGB 29.8 pg (27.0-31.0); MEAN CORPUSCULAR HGB CONC 31.3 g/dl (33.0-37.0); MEAN PLATELET VOLUME 10.2 fl (9.6-12.3); MONO # 0.8 10*3/uL (0.1-1.0); MONO % 6.9 % (3.0-9.0); NEUT # 8.4 10*3/uL (2.3-7.9); NEUT % 75.7 % (47.0-73.0); PLATELET COUNT AUTOMATED 270 10*3/uL (130-400); RED BLOOD COUNT 4.06 10*6/uL (4.10-5.10); RED CELL DISTRI WIDTH 15.5 % (0-14.5); WHITE BLOOD COUNT 11.1 10*3/uL (4.8-10.8)
[2018-03-04 06:23] LABS: HEMATOCRIT 38.6 % (37.0-47.0); HEMOGLOBIN 12.1 g/dl (12.0-16.0); MEAN CELL VOLUME 95.1 fl (81.0-99.0)
[2018-03-04 07:56] LABS: VITAMIN D, 25-HYDROXY 24.4 ng/mL (30-100)
[2018-03-04 08:00] VITALS: BP 120/60
[2018-03-04 12:00] VITALS: BP 105/57
[2018-03-04 16:00] VITALS: BP 122/67
[2018-03-04 20:00] VITALS: BP 112/58
[2018-03-05] VITALS: BP 132/69
[2018-03-05 04:00] VITALS: BP 101/44
[2018-03-05 04:44] LABS: BUN 7 mg/dl (7-24); CHLORIDE 104 mmol/L (98-107); CREATININE 0.33 mg/dL (0.55-1.02); POTASSIUM 3.6 mmol/L (3.5-5.1); SODIUM 141 mmol/L (136-145)
[2018-03-05 06:17] LABS: BASO % 0.2 % (0.0-1.0); EOS % 0.1 % (1.0-4.0); HEMATOCRIT 41.3 % (37.0-47.0); HEMOGLOBIN 12.5 g/dl (12.0-16.0); LYMPH # 1.6 10*3/uL (1.3-4.4); LYMPH % 15.5 % (27.0-41.0); MEAN CELL VOLUME 97.6 fl (81.0-99.0); MEAN CORPUSCULAR HGB 29.6 pg (27.0-31.0); MEAN CORPUSCULAR HGB CONC 30.3 g/dl (33.0-37.0); MEAN PLATELET VOLUME 10.3 fl (9.6-12.3); MONO # 0.7 10*3/uL (0.1-1.0); MONO % 6.7 % (3.0-9.0); NEUT # 7.8 10*3/uL (2.3-7.9); PLATELET COUNT AUTOMATED 277 10*3/uL (130-400); RED BLOOD COUNT 4.23 10*6/uL (4.10-5.10); RED CELL DISTRI WIDTH 15.7 % (0-14.5); WHITE BLOOD COUNT 10.1 10*3/uL (4.8-10.8)
[2018-03-05 08:00] VITALS: BP 150/78
[2018-03-05 12:00] VITALS: BP 132/60
[2018-03-05 16:00] VITALS: BP 146/71
[2018-03-05 20:00] VITALS: BP 110/65
[2018-03-06] VITALS: BP 126/63
[2018-03-06 04:00] VITALS: BP 122/56
[2018-03-06 05:59] LABS: BASO % 0.1 % (0.0-1.0); HEMATOCRIT 39.4 % (37.0-47.0); LYMPH # 1.5 10*3/uL (1.3-4.4); LYMPH % 14.2 % (27.0-41.0); MEAN CELL VOLUME 96.6 fl (81.0-99.0); MEAN CORPUSCULAR HGB 29.4 pg (27.0-31.0); MEAN CORPUSCULAR HGB CONC 30.5 g/dl (33.0-37.0); MEAN PLATELET VOLUME 10.3 fl (9.6-12.3); MONO # 0.6 10*3/uL (0.1-1.0); MONO % 5.7 % (3.0-9.0); NEUT # 8.4 10*3/uL (2.3-7.9); NEUT % 79.7 % (47.0-73.0); PLATELET COUNT AUTOMATED 227 10*3/uL (130-400); RED BLOOD COUNT 4.08 10*6/uL (4.10-5.10); RED CELL DISTRI WIDTH 15.4 % (0-14.5); WHITE BLOOD COUNT 10.5 10*3/uL (4.8-10.8)
[2018-03-06 06:01] LABS: BUN 6 mg/dl (7-24); CHLORIDE 97 mmol/L (98-107); CREATININE 0.32 mg/dL (0.55-1.02); POTASSIUM 3.5 mmol/L (3.5-5.1); SODIUM 140 mmol/L (136-145)
[2018-03-06 08:00] VITALS: BP 90/44
[2018-03-06 11:08] LABS: ABG BASE EXCESS 7.9 mmol/L (-2.0-2.0); ABG HCO3 37.4 mmol/l (22-26); ABG O2 SATURATION 93.6 % (95-97); ARTERIAL BLOOD GAS PH 7.272 (7.35-7.45); ARTERIAL BLOOD GAS PO2 72.6 mmHg (80-90)
[2018-03-06 11:11] LABS: ARTERIAL BLOOD GAS PCO2 83.4 mmHg (35-45)
[2018-03-06 12:00] VITALS: BP 113/61
[2018-03-06 16:00] VITALS: BP 111/50
[2018-03-06 20:04] VITALS: BP 111/58
[2018-03-07] VITALS: BP 130/58
[2018-03-07 04:00] VITALS: BP 142/62
[2018-03-07 05:28] LABS: BUN 6 mg/dl (7-24); CHLORIDE 100 mmol/L (98-107); CREATININE 0.36 mg/dL (0.55-1.02); POTASSIUM 3.9 mmol/L (3.5-5.1); SODIUM 141 mmol/L (136-145)
[2018-03-07 05:43] LABS: DIGOXIN 1.33 ng/ml (0.8-2.0)
[2018-03-07 06:10] LABS: BASO % 0.1 % (0.0-1.0); HEMATOCRIT 37.8 % (37.0-47.0); HEMOGLOBIN 11.5 g/dl (12.0-16.0); LYMPH % 10.5 % (27.0-41.0); MEAN CELL VOLUME 98.4 fl (81.0-99.0); MEAN CORPUSCULAR HGB 29.9 pg (27.0-31.0); MEAN CORPUSCULAR HGB CONC 30.4 g/dl (33.0-37.0); MEAN PLATELET VOLUME 10.4 fl (9.6-12.3); MONO # 0.6 10*3/uL (0.1-1.0); MONO % 6.4 % (3.0-9.0); NEUT % 82.7 % (47.0-73.0); PLATELET COUNT AUTOMATED 191 10*3/uL (130-400); RED BLOOD COUNT 3.84 10*6/uL (4.10-5.10); WHITE BLOOD COUNT 9.7 10*3/uL (4.8-10.8)
[2018-03-07 08:00] VITALS: BP 126/54
[2018-03-07 12:00] VITALS: BP 129/63
[2018-03-07 16:00] VITALS: BP 102/52
[2018-03-07 20:00] VITALS: BP 110/61
[2018-03-08] VITALS: BP 119/51
[2018-03-08 04:00] VITALS: BP 163/90
[2018-03-08 06:15] LABS: BASO % 0.1 % (0.0-1.0); EOS % 0.1 % (1.0-4.0); HEMATOCRIT 40.8 % (37.0-47.0); HEMOGLOBIN 12.2 g/dl (12.0-16.0); LYMPH % 9.9 % (27.0-41.0); MEAN CELL VOLUME 98.6 fl (81.0-99.0); MEAN CORPUSCULAR HGB 29.5 pg (27.0-31.0); MEAN CORPUSCULAR HGB CONC 29.9 g/dl (33.0-37.0); MEAN PLATELET VOLUME 10.3 fl (9.6-12.3); MONO # 0.8 10*3/uL (0.1-1.0); MONO % 8.4 % (3.0-9.0); NEUT # 7.8 10*3/uL (2.3-7.9); NEUT % 81.1 % (47.0-73.0); PLATELET COUNT AUTOMATED 215 10*3/uL (130-400); RED BLOOD COUNT 4.14 10*6/uL (4.10-5.10); RED CELL DISTRI WIDTH 15.2 % (0-14.5); WHITE BLOOD COUNT 9.6 10*3/uL (4.8-10.8)
[2018-03-08 06:24] LABS: BUN 7 mg/dl (7-24); CHLORIDE 99 mmol/L (98-107); CREATININE 0.41 mg/dL (0.55-1.02); POTASSIUM 4.3 mmol/L (3.5-5.1); SODIUM 138 mmol/L (136-145)
[2018-03-08 06:42] LABS: PREALBUMIN 13 mg/dl (20-40)
[2018-03-08 08:00] VITALS: BP 117/57
[2018-03-08 12:00] VITALS: BP 115/54
[2018-03-08 16:00] VITALS: BP 117/44
[2018-03-08 20:00] VITALS: BP 121/59
[2018-03-09] VITALS: BP 123/56
[2018-03-09 08:00] VITALS: BP 105/49
[2018-03-09 12:00] VITALS: BP 132/60
[2018-03-09 16:00] VITALS: BP 116/46
[2018-03-09 20:00] VITALS: BP 132/66
[2018-03-10] VITALS: BP 124/66
[2018-03-10 12:00] VITALS: BP 110/50
[2018-03-10 16:00] VITALS: BP 120/56
[2018-03-10 20:00] VITALS: BP 120/45
[2018-03-11] VITALS: BP 106/49
[2018-03-11 04:52] VITALS: BP 120/80
[2018-03-11 06:24] LABS: BASO % 0.1 % (0.0-1.0); HEMATOCRIT 33.1 % (37.0-47.0); HEMOGLOBIN 10.6 g/dl (12.0-16.0); LYMPH % 13.9 % (27.0-41.0); MEAN CELL VOLUME 92.2 fl (81.0-99.0); MEAN CORPUSCULAR HGB 29.5 pg (27.0-31.0); MEAN PLATELET VOLUME 9.9 fl (9.6-12.3); MONO # 0.7 10*3/uL (0.1-1.0); MONO % 9.9 % (3.0-9.0); NEUT # 5.4 10*3/uL (2.3-7.9); PLATELET COUNT AUTOMATED 234 10*3/uL (130-400); RED BLOOD COUNT 3.59 10*6/uL (4.10-5.10); RED CELL DISTRI WIDTH 14.8 % (0-14.5); WHITE BLOOD COUNT 7.2 10*3/uL (4.8-10.8)
[2018-03-11 06:40] LABS: BUN 14 mg/dl (7-24); CHLORIDE 101 mmol/L (98-107); CREATININE 0.32 mg/dL (0.55-1.02); POTASSIUM 3.5 mmol/L (3.5-5.1); SODIUM 139 mmol/L (136-145)
[2018-03-11 08:00] VITALS: BP 120/72; BP 122/67
[2018-03-11 12:00] VITALS: BP 136/65
[2018-03-11] MEDS ORDERED: MUCINEX ER600 MG PO (14:09)
[2018-03-11] MEDS ORDERED: XARE20MG PO (14:09)
[2018-03-11] MEDS ORDERED: DILTIAZEM HYDR180 M2 PO (14:09)
[2018-03-11] MEDS ORDERED: ACETAZOLAMIDE250 MG PO (14:09)
[2018-03-11] MEDS ORDERED: ASPIRIN ADULT L81 M2 PO (14:09)
[2018-03-11] MEDS ORDERED: SEPTDS PO (14:11)
[2018-03-11 16:00] VITALS: BP 126/53
[2018-03-12] MEDS ORDERED: TYLENOL325 M2 PO (08:32)
[2018-03-12] MEDS ORDERED: ATIVAN0.5 MG PO (08:33)
== END 2018-03-11 18:04 | disposition other institution (70) | DRG 871 ==
LOC: ED 11:48 → 5E 12:40 → EDHOLD 12:40 → ICCU 12:40 → 5E 03-08 13:34
PROVIDERS: Emergency Medicine; Internal Medicine; Internal Medicine Critical Care Medicine; Student in an Organized Health Care Education/Training Program
DX: A41.9 Sepsis, unspecified organism (principal); J15.6 Pneumonia due to other Gram-negative bacteria; E43 Unspecified severe protein-calorie malnutrition; J96.21 Acute and chronic respiratory failure with hypoxia; J96.22 Acute and chronic respiratory failure with hypercapnia; J18.1 Lobar pneumonia, unspecified organism; J18.0 Bronchopneumonia, unspecified organism; I48.92 Unspecified atrial flutter; E87.1 Hypo-osmolality and hyponatremia; I50.32 Chronic diastolic (congestive) heart failure; J93.9 Pneumothorax, unspecified; J44.1 Chronic obstructive pulmonary disease with (acute) exacerbation; N39.0 Urinary tract infection, site not specified; J44.0 Chronic obstructive pulmonary disease with (acute) lower respiratory infection; Z68.1 Body mass index [BMI] 19.9 or less, adult; R74.8 Abnormal levels of other serum enzymes; I95.1 Orthostatic hypotension; H81.10 Benign paroxysmal vertigo, unspecified ear; R27.0 Ataxia, unspecified; R73.03 Prediabetes; E55.9 Vitamin D deficiency, unspecified; F32.9 Major depressive disorder, single episode, unspecified; F41.1 Generalized anxiety disorder; E87.8 Other disorders of electrolyte and fluid balance, not elsewhere classified; Z96.641 Presence of right artificial hip joint; F19.90 Other psychoactive substance use, unspecified, uncomplicated; B96.4 Proteus (mirabilis) (morganii) as the cause of diseases classified elsewhere; I25.10 Atherosclerotic heart disease of native coronary artery without angina pectoris; I08.0 Rheumatic disorders of both mitral and aortic valves; Z66 Do not resuscitate; Z51.5 Encounter for palliative care; R73.9 Hyperglycemia, unspecified; Z88.8 Allergy status to other drugs, medicaments and biological substances; Z99.81 Dependence on supplemental oxygen; Z72.0 Tobacco use; Z98.890 Other specified postprocedural states; Z91.19 Patient's noncompliance with other medical treatment and regimen; Z71.6 Tobacco abuse counseling; Z88.6 Allergy status to analgesic agent; Z91.041 Radiographic dye allergy status; Z79.899 Other long term (current) drug therapy; Z85.118 Personal history of other malignant neoplasm of bronchus and lung; Z98.51 Tubal ligation status; Z90.89 Acquired absence of other organs; Z90.49 Acquired absence of other specified parts of digestive tract; Z82.49 Family history of ischemic heart disease and other diseases of the circulatory system; Z80.1 Family history of malignant neoplasm of trachea, bronchus and lung; Z80.8 Family history of malignant neoplasm of other organs or systems